=== PATIENT | male | born 1935 | race Two or more races ===

== ENCOUNTER 2018-02-04 15:49 | Inpatient (IN) | payer MEDICAID, MEDICARE ==
[~2018-02-04] VITALS: Ht 165.1 cm; Wt 603.7 kg
[2018-02-04] VITALS (11 sets, daily range): BP systolic 70–102; BP diastolic 30–81
[~2018-02-04 15:49] MED LIST: Amiodarone 150mg/ml 3ml Amp ONE; Atropine Inj 1mg/10ml Syr ONE; Calcium Chloride 10% 10ml carpuject IVP ONE; Sodium Bicarbonate 50ml Carp ONE
[2018-02-04] MEDS ORDERED: CARVEDILOL3.125 MG ORAL (15:54)
[2018-02-04] MEDS ORDERED: LASIX40 MG ORAL (15:54)
[2018-02-04] MEDS ORDERED: ASPIR 8181 MG ORAL (15:54)
[2018-02-04] MEDS ORDERED: ATORVASTATIN CA40 MG ORAL (15:54)
[2018-02-04] MEDS ORDERED: METFORMIN HCL1000 M1 ORAL (15:54)
--- NOTE | 2018-02-04 16:00 | Emergency Room Report ---
History of Present Illness General Chief Complaint: Altered Level of Consciousness Source: Patient, Family Member Present Illness HPI 82-year-old male, history of hypertension, diabetes, asthma, presenting with 3 days of severe generalized weakness, decreased oral intake. Patient is coming from home with . States that he has had some subjective fever. Also too weak to get up, which has worsened the last 2 days. says that he has not eaten or drink anything since yesterday. Patient is very lethargic, however arousable and oriented 3. However very difficult for him to answer questions. He is denying current chest pain shortness of breath or abdominal pain. states that she believes patient has had some vomiting and diarrhea, around 3 times a day. No bloody or black stool. Allergies: Coded Allergies: No Known Allergies (Unverified , 02/04/18) Patient History Past Medical History: see triage record Past Surgical History: none Pertinent Family History: none Reviewed Nursing Documentation: PMH: Agreed; PSxH: Agreed Nursing Documentation-PMH Hx Hypertension: Yes Hx Diabetes: Yes Review of Systems All Other Systems: negative except mentioned in HPI Physical Exam Vital Signs Date Time Temp Pulse Resp B/P (MAP) Pulse Ox O2 Delivery O2 Flow Rate FiO2 02/04/18 15:44 97.8 86 14 90/60 95 Room Air 97.9 Sp02 EP Interpretation: reviewed, normal General Appearance: moderate distress, lethargic, thin, other - arousable Head: normocephalic, atraumatic Eyes: bilateral eye normal inspection, bilateral eye PERRL, bilateral eye EOMI ENT: normal ENT inspection, normal pharynx, normal voice, moist mucus membranes Neck: normal inspection, full range of motion, supple Respiratory: normal inspection, lungs clear, normal breath sounds, no respiratory distress, no retraction, no wheezing, speaking full sentences, chest symmetrical Cardiovascular #1: regular rate, rhythm, normal capillary refill, edema Cardiovascular #2: 2+ radial (R), 2+ radial (L) Gastrointestinal: normal inspection, non tender, soft, non-distended, no guarding, other - nontender all abdomen, soft Musculoskeletal: normal inspection, back normal, normal range of motion, non- tender Neurologic: oriented x3, other - lethargic, moving all ext on command Psychiatric: other - letgargic Skin: warm/dry, well hydrated, normal turgor, jaundice Procedures Critical Care Time Critical Care Time 40 minutes of CC time 82-year-old male, generalized weakness, jaundice VS: Hypotension Airway patent. Not hypoxic. PLAN: IV access, labs, lactate, troponin, Blood/Urine Cx, Abx, IVF Anticipate admission to Tele vs. PAUL CC time also includes review of labs, review of EMR, discussion with family and paperwork from SNF, d/w hospitalist CC could include dosing of pressors, additional Abx CC time does not include procedures Central Line Central Line : Consent: Written Central Line Lumen: triple Maximal Sterile Barrier Tech: yes cap, yes mask, yes sterile gown, yes sterile gloves, yes large sterile sheet, yes hand hygiene, yes chlorhexidine prep Central Line Postion: internal jugular (R) Anesthesia: Lidocaine cc's of anesthesia: 2 Complications: none Central Line Post Position: sutured, good blood return, position confirmed w / CXR Attempts: One Patient Tolerated: Well Complications: None Medical Decision Making Diagnostic Impression: Primary Impression: Hypotension Additional Impressions: Generalized weakness Decreased oral intake Hypoglycemia Renal failure Elevated LFTs ER Course 82-year-old male with lethargy, decreased oral intake for 3 days DDX: Dehydration, electrolyte disturbance, gastroenteritis, cholangitis, diverticulitis, UTI, pneumonia Plan: Obtain labs, ua, EKG, CXR Fluids ER course: Patient initially hyposensitive, 86/59, given IV fluid bolus CXR with chf vs. R sided infiltrate. pt given empiric abx also with elevated LFTs, pt initially without abd pain, now c/o RUQ pain - possibly cholangitis however afebrile rectally pt received abx, flagyl added BP improved with fluids, MAP remaining above 65 CT abdo pelvis performed - ascites/edema patient had BM then became hypotensive, systolic 70s, already received 1L, getting 2nd liter placed R IJ central line, levophed started conveyed to patient's critical condition of pt he is still protecting airway and conversing with Disposition: Patient is to be admitted to ICU D/W hospitalist Dr Rajan Please note that this Emergency Department Report was dictated using [employer] technology software, occasionally this can lead to erroneous entry secondary to interpretation by the dictation equipment. EKG Diagnostic Results EP Interpretation: Yes Rate: normal Rhythm: NSR ST Segments: TWI V4-V6 ASA given to patient: No Rhythm Strip EP Interpretation: Yes Rate: 90 Rhythm: NSR, no PVCs, no ectopy Chest X-ray CXR: Ordered: Yes 1 view Indication: Lethargy EP interpretation: Yes Interpretation: cardiomegaly, +chf, cannot r/o R sided infilrtrate Impression:cardiomegaly, +chf, cannot r/o R sided infilrtrate Electronically signed by Veronica Darden MD Chest X-ray CXR: Ordered: Yes 1 view Indication: Chest pain EP interpretation: Yes Interpretation: No consolidation, no effusion, no PTX, no acute cardiopulmonary disease Impression: No acute disease Electronically signed by Veronica Darden MD Chest X-ray CXR: Ordered: Yes 1 view Indication: line placement EP interpretation: Yes Interpretation: chf, CVP in appropriate position Impression: chf, CVP in appropriate position Electronically signed by Veronica Darden MD CT abdo pelvis CT ABDOMEN & PELVIS Without Contrast: Small ascites. Anasarca. Due to ascites/edema, cannot exclude pancreatitis, gastritis, enteritis, colitis. No appendicitis, SBO, or diverticulitis. No hydronephrosis. Distended bladder. Mildly thickened bladder which may be edema versus cystitis. Prominent prostate. Cardiomegaly. Small pericardial effusion. Pleural effusions. Bibasilar atelectasis/infiltrates. Laboratory Tests Test 02/04/18 15:55 02/04/18 16:21 Arterial Blood pH 7.429 (7.350-7.450) Arterial Blood Partial Pressure CO2 36.6 mmHg (35.0-45.0) Arterial Blood Partial Pressure O2 126.7 mmHg (75.0-100.0) H Arterial Blood HCO3 23.7 mmol/L (22.0-26.0) Arterial Blood Oxygen Saturation 97.4 % (92.0-98.0) Arterial Blood Base Excess -0.3 Biju Test Positive White Blood Count 11.4 K/UL (4.8-10.8) H Red Blood Count 5.47 M/UL (4.70-6.10) Hemoglobin 14.1 G/DL (14.2-18.0) L Hematocrit 42.6 % (42.0-52.0) Mean Corpuscular Volume 78 FL (80-99) L Mean Corpuscular Hemoglobin 25.8 PG (27.0-31.0) L Mean Corpuscular Hemoglobin Concent 33.1 G/DL (32.0-36.0) Red Cell Distribution Width 21.4 % (11.6-14.8) H Platelet Count 138 K/UL (150-450) L Mean Platelet Volume 12.1 FL (6.5-10.1) H Neutrophils (%) (Auto) % (45.0-75.0) Lymphocytes (%) (Auto) % (20.0-45.0) Monocytes (%) (Auto) % (1.0-10.0) Eosinophils (%) (Auto) % (0.0-3.0) Basophils (%) (Auto) % (0.0-2.0) Differential Total Cells Counted 100 Neutrophils % (Manual) 89 % (45-75) H Lymphocytes % (Manual) 5 % (20-45) L Monocytes % (Manual) 4 % (1-10) Eosinophils % (Manual) 0 % (0-3) Basophils % (Manual) 0 % (0-2) Band Neutrophils 2 % (0-8) Platelet Estimate Decreased L Platelet Morphology Normal Poikilocytosis 3+ Anisocytosis 3+ Microcytosis 1+ [place] Cells 2+ Sodium Level 141 MMOL/L (136-145) Potassium Level 3.9 MMOL/L (3.5-5.1) Chloride Level 103 MMOL/L (98-107) Carbon Dioxide Level 30 MMOL/L (21-32) Anion Gap 8 mmol/L (5-15) Blood Urea Nitrogen 42 mg/dL (7-18) H Creatinine 2.1 MG/DL (0.55-1.30) H Estimate Glomerular Filtration Rate mL/min (>60) Glucose Level 62 MG/DL (74-106) L Lactic Acid Level 2.10 mmol/L (0.66-2.22) Calcium Level 7.9 MG/DL (8.5-10.1) L Total Bilirubin 6.4 MG/DL (0.2-1.0) H Direct Bilirubin 5.2 MG/DL (0.0-0.3) H Aspartate Amino Transferase (AST) 150 U/L (15-37) H Alanine Aminotransferase (ALT) 114 U/L (12-78) H Alkaline Phosphatase 489 U/L (46-116) H Total Creatine Kinase 85 U/L (26-308) Troponin I 0.017 ng/mL (0.000-0.056) Pro-B-Type Natriuretic Peptide > 30901 pg/mL (0-125) H Total Protein 5.4 G/DL (6.4-8.2) L Albumin 1.9 G/DL (3.4-5.0) L Globulin 3.5 g/dL Albumin/Globulin Ratio 0.5 (1.0-2.7) L Microbiology Date/Time Source Procedure Growth Status 02/04/18 16:29 Nasal Nares Influenza Types A,B Antigen (PADMINI) - Final Complete Last Vital Signs Date Time Temp Pulse Resp B/P (MAP) Pulse Ox O2 Delivery O2 Flow Rate FiO2 02/04/18 15:44 97.8 86 14 90/60 95 Room Air 97.9 Disposition: ADMITTED INPATIENT Condition: Critical Veronica Darden M.D. Feb 04, 2018 16:00
[2018-02-04 16:43] LABS: HEMATOCRIT 42.6 % (42.0-52.0); HEMOGLOBIN 14.1 G/DL (14.2-18.0); MEAN CORPUSCULAR VOLUME 78 FL (80-99); PLATELET COUNT 138 K/UL (150-450); RED BLOOD COUNT 5.47 M/UL (4.70-6.10); RED CELL DISTRIBUTION WIDTH 21.4 % (11.6-14.8); WHITE BLOOD COUNT 11.4 K/UL (4.8-10.8)
[2018-02-04] MEDS ORDERED: cefTRIAXone 1 GM in NS 55 ML IVPB ONE (16:45)
[2018-02-04] MEDS ORDERED: Azithromycin 500 MG in NS 275 ML IV ONE (16:45)
[2018-02-04 16:52] LABS: ANION GAP 8 mmol/L (5-15); BLOOD UREA NITROGEN 42 mg/dL (7-18); CALCIUM 7.9 MG/DL (8.5-10.1); CARBON DIOXIDE 30 MMOL/L (21-32); CHLORIDE 103 MMOL/L (98-107); CREATININE 2.1 MG/DL (0.55-1.30); POTASSIUM 3.9 MMOL/L (3.5-5.1); SODIUM 141 MMOL/L (136-145)
[2018-02-04] MEDS ORDERED: Azithromycin 500mg Inj IV ONE (16:52)
[2018-02-04 17:04] LABS: ALANINE AMINOTRANSFERASE 114 U/L (12-78); ALBUMIN 1.9 G/DL (3.4-5.0); ALBUMIN/GLOBULIN RATIO 0.5 (1.0-2.7); ALKALINE PHOSPHATASE 489 U/L (46-116); ASPARTATE AMINO TRANSFERASE 150 U/L (15-37); BILIRUBIN,TOTAL 6.4 MG/DL (0.2-1.0); CREATINE KINASE 85 U/L (26-308)
[2018-02-04 17:06] LABS: BILIRUBIN,DIRECT 5.2 MG/DL (0.0-0.3)
[2018-02-04] MEDS ORDERED: Lidocaine 1% Plain 30 ml INJ ONE (18:25)
[2018-02-04] MEDS ORDERED: Levophed 4mg/4mL Inj IV ONE ×2 (18:56→22:39)
[2018-02-04] MEDS ORDERED: Vancomycin 1gm inj IVPB ONE (18:56)
[2018-02-04] MEDS ORDERED: Vancomycin 1 GM in NS 275 ML IVPB ONE (19:00)
--- NOTE | 2018-02-04 19:51 | General Progress Note ---
Assessment/Plan Assessment/Plan GI CONSULT - Preliminary evaluation ATSP for abnormal LFT Records on line reviewed and discussed with Dr. Arredondo Need to r/o cholecystitis vs biliary obstruction/cholagitis CT reportedly not informative Will order STAT ultrasound tonight Thank you Gus Ingram MD Subjective Allergies: Coded Allergies: No Known Allergies (Unverified , 02/04/18) Objective Last 24 Hour Vital Signs Date Time Temp Pulse Resp B/P (MAP) Pulse Ox O2 Delivery O2 Flow Rate FiO2 02/04/18 16:11 96.3 14 89/59 95 Room Air 96.3 02/04/18 15:44 97.8 86 14 90/60 95 Room Air 97.9 Laboratory Tests 02/04/18 15:55: Arterial Blood pH 7.429, Arterial Blood Partial Pressure CO2 36.6, Arterial Blood Partial Pressure O2 126.7H, Arterial Blood HCO3 23.7, Arterial Blood Oxygen Saturation 97.4, Arterial Blood Base Excess -0.3, Biju Test Positive 02/04/18 16:21: White Blood Count 11.4H, Red Blood Count 5.47, Hemoglobin 14.1L, Hematocrit 42.6 , Mean Corpuscular Volume 78L, Mean Corpuscular Hemoglobin 25.8L, Mean Corpuscular Hemoglobin Concent 33.1, Red Cell Distribution Width 21.4H, Platelet Count 138L, Mean Platelet Volume 12.1H, Neutrophils (%) (Auto) , Lymphocytes (%) (Auto) , Monocytes (%) (Auto) , Eosinophils (%) (Auto) , Basophils (%) (Auto) , Differential Total Cells Counted 100, Neutrophils % ( Manual) 89H, Lymphocytes % (Manual) 5L, Monocytes % (Manual) 4, Eosinophils % ( Manual) 0, Basophils % (Manual) 0, Band Neutrophils 2, Platelet Estimate DecreasedL, Platelet Morphology Normal, Poikilocytosis 3+, Anisocytosis 3+, Microcytosis 1+, Jordy Cells 2+, Sodium Level 141, Potassium Level 3.9, Chloride Level 103, Carbon Dioxide Level 30, Anion Gap 8, Blood Urea Nitrogen 42H, Creatinine 2.1H, Estimat Glomerular Filtration Rate , Glucose Level 62L, Lactic Acid Level 2.10, Calcium Level 7.9L, Total Bilirubin 6.4H, Direct Bilirubin 5.2H , Aspartate Amino Transf (AST/SGOT) 150H, Alanine Aminotransferase (ALT/SGPT) 114H, Alkaline Phosphatase 489H, Total Creatine Kinase 85, Troponin I 0.017, Pro -B-Type Natriuretic Peptide > 06996U, Total Protein 5.4L, Albumin 1.9L, Globulin 3.5, Albumin/Globulin Ratio 0.5L Height (Feet): 5 Height (Inches): 5.00 Weight (Pounds): 120 GUS INGRAM Feb 04, 2018 19:51
[2018-02-04] MEDS ORDERED: Acetaminophen 650 MG SUPP RECTAL PRN (20:00)
--- NOTE | 2018-02-04 20:08 | History & Physical ---
History and Physical History & Physicial HP dictated # [id number] GLENN RODRIGUEZ Feb 04, 2018 20:08
[2018-02-04 20:20] LABS: INR 1.7 (0.9-1.1)
[2018-02-04] MEDS: D5NS 1,000 ML IV SCH (20:40)
[2018-02-04 21:19] LABS: APPEARANCE,URINE SLIGHTLY CLOUDY; BILIRUBIN, URINE 2+ (NEGATIVE); COLOR,URINE BROWN; GLUCOSE, URINE (UA) NEGATIVE (NEGATIVE); KETONES,URINE NEGATIVE (NEGATIVE); LEUKOCYTE ESTERASE ,URINE 1+ (NEGATIVE); NITRITE,URINE NEGATIVE (NEGATIVE); PH,URINE 5 (4.5-8.0); PROTEIN,URINE 3+ (NEGATIVE); UROBILINOGEN,URINE 8 MG/DL (0.0-1.0)
[2018-02-04] MEDS: Piperacillin/Tazobactam 3.375 GM in D5W 110 ML IVPB SCH (22:00)
[2018-02-04] MEDS ORDERED: Piperacillin/Tazobactam 3.375 GM in D5W 110 ML IVPB SCH (22:00)
--- NOTE | 2018-02-04 23:13 | Consultation ---
Consult Note Assessment/Plan #[id number] sepsis with shock UTI pna elevated LFT ro obstruction, choleysistis dm hx of HTN RI dehydration left 5th digit wound MARIA E MUNOZ DO Feb 04, 2018 23:13
[2018-02-04] MEDS ORDERED: Zosyn 3.375gm inj ONE ×2 (23:20)
[2018-02-05] VITALS (45 sets, daily range): BP systolic 90–110; BP diastolic 54–88
--- NOTE | 2018-02-05 02:30 | History and Physical Report ---
DATE OF ADMISSION: 02/04/2018 CHIEF COMPLAINT: The patient had change in mental status, not eating for the past few days. HISTORY OF PRESENT ILLNESS: This is an 82-year-old male, who lives with . The states that the patient was not eating for the past few days, was not responding well, was confused, and had weakness. The patient was seen in the emergency room. Blood pressure was low. The patient was found to be in septic shock and is being admitted to intensive care unit on the pressors. The patient is lethargic and unable to respond. PAST MEDICAL HISTORY: History of diabetes mellitus, hypertension. The patient has a coronary artery disease, status post stenting. According to the , the patient has had some liver disease, but she cannot give me details. MEDICATIONS: Reviewed. ALLERGIES: No known drug allergies. SOCIAL HISTORY: No history of smoking or alcohol abuse. REVIEW OF SYSTEMS: Unobtainable. PHYSICAL EXAMINATION: GENERAL: The patient is a elderly male, eyes shut. VITAL SIGNS: Blood pressure is 90/60, pulse 86, temperature 97.8, respirations 14. HEENT: Somewhat pale conjunctiva. Icteric sclerae. NECK: Supple. LUNGS: Clear to auscultation. HEART: S1, S2 without murmurs or rubs. ABDOMEN: Soft and nontender. EXTREMITIES: Bilateral pedal edema. LABORATORY FINDINGS: The chemistry panel shows serum sodium potassium 3.9, chloride 103, CO2 32, BUN is 42, creatinine 2.1, blood sugar is 62, and calcium 7.9. AST 151, ALT of 114, alkaline phosphatase 489. ASSESSMENT: This is an 82-year-old, male, who is admitted with change in mental status, poor p.o. intake. He has low blood pressure, diagnosis of septic shock. He has also elevated liver enzymes. Specifically also biliary obstruction based on the fact that he has bilirubin of 6.4. Also AST and ALT elevated. Acute cholangitis above among other reasons for his sepsis. PLAN: The patient will be on IV fluids, NPO, IV antibiotics, ICU care. IV Levophed will be started to keep systolic blood pressure more than 90. Critical Care, Gastrointestinal, and surgical consultation will be obtained. Vito Rajan M.D. DR: Carolina JOB#: [id number] CC:
--- NOTE | 2018-02-05 03:30 | Consultation ---
DATE OF CONSULTATION: 02/04/2018 PULMONARY/CRITICAL CARE CONSULTATION CONSULTING PHYSICIAN: Lola Harper M.D. REASON FOR CONSULTATION: Sepsis, shortness of breath. HISTORY OF PRESENT ILLNESS: This is an 82-year-old gentleman with multiple medical problems, who came from home with his with fever, cough, generalized weakness, shortness of breath, hypotension, decreased p.o. intake for 48 hours, lethargic, and unable to ambulate. He has had nausea, vomiting, and diarrhea as well. He has history of hypertension and diabetes. In the emergency room, triple-lumen was placed. He was placed on Levophed to maintain mean arterial pressure above 65 mmHg. He was straight-catheterized. A Astorga catheter was not placed. IV antibiotics and IV fluids have been initiated. SOCIAL HISTORY: Negative for tobacco, alcohol, or drugs. FAMILY HISTORY: Noncontributory. MEDICATIONS: Pre-hospital medications reviewed, reconciled, and documented in the electronic medical record by dose, frequency, and route. SURGICAL HISTORY: None. PHYSICAL EXAMINATION: GENERAL: As per my exam, he is arousable, has shortness of breath, but critically ill appearing. VITAL SIGNS: Blood pressure is 102/72, pulse 92, respirations are 23, currently on 2 L nasal cannula, hypothermic at 96.4. HEENT: Normocephalic and atraumatic. Oropharynx is dry. Nasal mucosa is mildly dry. NECK: Supple. LUNGS: Decreased rhonchi at bilateral bases. No wheezes present. HEART: Regular without murmur. ABDOMEN: Soft, obese, nontender. Positive bowel sounds. EXTREMITIES: No edema. SKIN: He has a wound of his fifth digit of his left foot. No other lesions were noted. LABORATORY VALUES: White count 11.4, hemoglobin of 14.1, platelets 138,000. Sodium 141, potassium 3.9, chloride 103, bicarbonate 30, BUN 42, creatinine 2.1. Lactic acid is increased at 4.10. His troponin is 0.014. His BNP is elevated at 3500. His LFTs are diffusely elevated with bilirubin of 6.4, alkaline phosphatase is 48.9. Urinalysis is positive for leukocyte esterase. ABG, pH 7.429, pCO2 36, pO2 126. The patient has been seen in consultation by wellness program coordinator who is in the process of working on ruling out cholecystitis versus biliary obstruction and cholangitis. CT report is pending. This is an informative per his report and stat ultrasound is pending at this time. Chest x-ray shows CHF with right-sided infiltrate. Abdominal CT with ascites and edema. ASSESSMENT: 1. Respiratory insufficiency. 2. Sepsis. 3. Elevated liver function tests with concerns for cholecystitis versus cholangitis and obstructive jaundice. 4. Right lower lobe pneumonia on chest x-ray. 5. History of diabetes. 6. Hypertension. 7. Worsening renal insufficiency. 8. Urinary tract infection. 9. Shock. PLAN: He has been placed on IV antibiotics which will be continued at this time, Zosyn and vancomycin. Pressors to maintain mean arterial pressure greater than 35 mmHg, IV fluids, glycemic control, DVT prophylaxis, wound care, nebulizer treatments, aspiration precautions, recheck his labs in the morning. We will trend his lactate, follow up his abdominal ultrasound which is pending. Astorga catheter will be placed. A 2D echo is recommended as well and trending troponins accordingly. The patient remains critically ill. Greater than 35 minutes of critical care time was spent in evaluating the patient in the intensive care unit and reviewing laboratory values, studies, consultants' notes, recommendations, discussing with the nursing staff, and discussing with the patient's who is at the bedside. Lola Harper D.O. DR: Nasim JOB#: [id number] CC:
[2018-02-05 05:19] LABS: HEMATOCRIT 40.6 % (42.0-52.0); HEMOGLOBIN 13.1 G/DL (14.2-18.0); MEAN CORPUSCULAR VOLUME 79 FL (80-99); PLATELET COUNT 142 K/UL (150-450); RED BLOOD COUNT 5.16 M/UL (4.70-6.10); RED CELL DISTRIBUTION WIDTH 21.5 % (11.6-14.8); WHITE BLOOD COUNT 13.1 K/UL (4.8-10.8)
[2018-02-05] MEDS: Piperacillin/Tazobactam 3.375 GM in D5W 110 ML IVPB SCH ×3 (05:26→21:03)
[2018-02-05 05:40] LABS: ALANINE AMINOTRANSFERASE 116 U/L (12-78); ALBUMIN 1.6 G/DL (3.4-5.0); ALKALINE PHOSPHATASE 402 U/L (46-116); ANION GAP 9 mmol/L (5-15); ASPARTATE AMINO TRANSFERASE 145 U/L (15-37); BILIRUBIN,DIRECT 5.4 MG/DL (0.0-0.3); BILIRUBIN,TOTAL 6.5 MG/DL (0.2-1.0); BLOOD UREA NITROGEN 38 mg/dL (7-18); CALCIUM 7.2 MG/DL (8.5-10.1); CARBON DIOXIDE 26 MMOL/L (21-32); CHLORIDE 105 MMOL/L (98-107); POTASSIUM 3.9 MMOL/L (3.5-5.1); SODIUM 140 MMOL/L (136-145)
[2018-02-05] MEDS: D5NS 1,000 ML IV SCH ×3 (06:42→23:18)
[2018-02-05] MEDS ORDERED: Vancomycin 1gm/D5W 275ml IVPB ONE ×2 (08:00)
--- NOTE | 2018-02-05 09:32 | Diagnostic Imaging Report ---
Indication: Abdominal pain Technique: CT scan of the abdomen and pelvis utilizing automated exposure control without intravenous or oral contrast. Axial, sagittal and coronal images were obtained. CT dose: Total DLP 546 mGycm; CTDI vol 11.1 mGy Comparison: None Findings: Evaluation of the solid organs is limited without intravenous contrast material. The heart is enlarged. There is a small pericardial effusion. Moderate right and small left pleural effusions are seen with bilateral lower lobe atelectasis/infiltrates. There is mild ascites. Subcutaneous edema is present. Atherosclerotic changes are seen. The abdominal aorta is normal in caliber. There is no gross focal liver lesion. The adrenal glands, spleen and pancreas are unremarkable. No calcified gallstones are seen. Kidneys are grossly unremarkable. The small bowel loops are normal in caliber. The appendix is normal. The prostate is enlarged with impression on the bladder base measuring 6.2 x 5.7 cm. Small fat and fluid-containing bilateral inguinal hernias are present. Degenerative changes of the spine are noted. There are also degenerative changes of the bilateral hips. There is grade 1 anterolisthesis of L5 on S1 with L5 pars defects. Bladder wall is mildly thickened. Impression: Mild ascites, moderate right and small left pleural effusions and subcutaneous edema suggestive of anasarca. Clinical correlation recommended. Cardiomegaly. Small pericardial effusion. Bilateral lower lobe atelectasis versus pneumonia. Clinical correlation recommended. No mechanical bowel obstruction. Enlarged prostate. Mild wall thickening of the bladder may be secondary to chronic outlet obstruction but cystitis not excluded. Correlation with urinalysis recommended. Small fat and fluid-containing bilateral inguinal hernias. Atherosclerotic changes. 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 Other findings as above. The CT scanner at [facility] is accredited by the [employer] and the scans are performed using protocols designed to limit radiation exposure to as low as reasonably achievable to attain images of sufficient resolution adequate for diagnostic evaluation.
--- NOTE | 2018-02-05 09:53 | Diagnostic Imaging Report ---
Indication: Shortness of breath Technique: XRAY Chest 1v Comparison: None Findings: Cardiac silhouette is prominent. Bilateral interstitial opacities are present. Costophrenic angles are blunted. Degenerative changes of the spine are present. Impression: Cardiomegaly with bilateral interstitial edema/infiltrates. Bibasilar pleural effusions.
--- NOTE | 2018-02-05 10:31 | Diagnostic Imaging Report ---
Indication: Status post central line placement Technique: XRAY Chest 1v Comparison: Examination from earlier the same day at 1618 hours Findings: Right internal jugular central line tip projects over the SVC/atrial junction. There is no pneumothorax. Chest is otherwise grossly stable in appearance. Impression: Satisfactory right internal jugular central line placement. No pneumothorax.
[2018-02-05] MEDS ORDERED: D5W 275ml ONE (10:59)
[2018-02-05] MEDS ORDERED: Tubing IV Secondary IV ONE (10:59)
[2018-02-05] MEDS ORDERED: NS 275ml ONE (10:59)
[2018-02-05] MEDS ORDERED: D5NS 1000ml IV ONE (10:59)
--- NOTE | 2018-02-05 11:11 | General Progress Note ---
Progress Note Progress Note For Dr. Arredondo: 82 yo male admitted from ER with painless jaundice and sepsis with bnp 35,000. Total bilirubin / direct 6.4/5.2 - this AM 6.5/5.4 Mildly elevated AST,ALT, Alk Phos Albumin 1.9 BUN/CR 42/2.1 - this AM 38/2.0 CT: ascites, anasarca, no pancreas or GB pathology evident, bilateral inguinal hernia containing fluid and fat Ultrasound - pending Imp. Jaundice, painless, with possible sepsis Rec: Await ultrasound - with bilirubin over 4 unlikely to be related only to cholecystitis Likely will need ERCP Antibiotics - per medicine R/O gallstones/CBD stones, ampullary or head of pancreas or bile duct tumor ISMAEL GOODWIN Feb 05, 2018 11:11
--- NOTE | 2018-02-05 11:16 | General Progress Note ---
Assessment/Plan Assessment/Plan GI CONSULT Assessment - Sepsis/shock/lactic acidosis - part of abnormal LFT may be due to hepatic hypoperfusion - abnormal LFT - cholangitis/biliary obstruction vs. cholecystitis - anasarca Recommendation - NPO - IVF - Abx - await STAT abd U/S - Surgical opinion - Further rec to follow Thank you Gus Ingram MD Subjective Allergies: Coded Allergies: No Known Allergies (Unverified , 02/04/18) Objective Last 24 Hour Vital Signs Date Time Temp Pulse Resp B/P (MAP) Pulse Ox O2 Delivery O2 Flow Rate FiO2 02/05/18 10:30 102 21 103/84 99 Nasal Cannula 2.0 02/05/18 10:00 103 25 106/86 99 Nasal Cannula 2.0 02/05/18 09:30 101 22 105/88 99 Nasal Cannula 2.0 02/05/18 09:00 104 21 106/85 98 Nasal Cannula 2.0 02/05/18 08:30 103 22 95/72 98 Nasal Cannula 2.0 02/05/18 08:23 96/72 02/05/18 08:00 102 02/05/18 08:00 102 24 96/72 99 Nasal Cannula 2.0 02/05/18 07:30 97.8 98 21 90/75 99 Nasal Cannula 2.0 97.8 02/05/18 07:00 93/78 02/05/18 07:00 99 21 93/78 99 Nasal Cannula 2.0 02/05/18 06:30 98 22 93/78 99 Nasal Cannula 2.0 02/05/18 06:00 98 18 98/73 100 Nasal Cannula 2.0 02/05/18 06:00 98/73 02/05/18 05:30 98 16 102/84 100 Nasal Cannula 2.0 02/05/18 05:00 99 16 100/82 100 Nasal Cannula 2.0 02/05/18 04:30 99 16 100/82 100 Nasal Cannula 2.0 02/05/18 04:10 97/57 02/05/18 04:00 97.5 101 21 106/82 100 Nasal Cannula 2.0 97.5 02/05/18 04:00 101 02/05/18 03:30 99 25 98/60 100 Nasal Cannula 2.0 02/05/18 03:00 82 18 96/74 100 Nasal Cannula 2.0 02/05/18 02:30 90 21 96/72 99 Nasal Cannula 2.0 02/05/18 02:00 90 21 110/80 99 Nasal Cannula 2.0 02/05/18 02:00 117/97 02/05/18 01:45 93 20 98/66 99 Nasal Cannula 2.0 02/05/18 01:00 97 23 110/80 99 Nasal Cannula 2.0 02/05/18 00:30 101 23 108/76 99 Nasal Cannula 2.0 02/05/18 00:00 92 02/05/18 00:00 100 23 103/78 99 Nasal Cannula 2.0 02/04/18 23:45 88 22 70/30 99 Nasal Cannula 2.0 02/04/18 23:30 92 21 92/55 99 Nasal Cannula 2.0 02/04/18 23:00 92 20 102/64 99 Nasal Cannula 2.0 02/04/18 22:45 93 21 100/73 97 Nasal Cannula 2.0 02/04/18 22:44 102/72 02/04/18 22:20 93 21 102/64 97 Nasal Cannula 2.0 02/04/18 22:20 92 02/04/18 22:15 92 23 98/53 96 Nasal Cannula 2.0 02/04/18 22:10 96.4 87 17 99/71 99 Nasal Cannula 2.0 96.4 02/04/18 22:00 96.4 87 17 99/71 99 Nasal Cannula 2.0 96.4 02/04/18 21:22 96.4 90 18 93/66 98 Nasal Cannula 2.0 96.4 02/04/18 20:16 96.2 90 17 99/81 100 Room Air 96.2 02/04/18 20:00 96/72 02/04/18 19:50 89/59 02/04/18 19:46 96.3 14 89/59 95 Room Air 96.3 02/04/18 19:45 71/43 02/04/18 19:35 70/53 02/04/18 19:35 70/53 02/04/18 19:35 70/53 02/04/18 19:35 70/53 02/04/18 19:35 70/53 02/04/18 19:35 70/53 02/04/18 19:35 70/53 02/04/18 19:35 70/53 02/04/18 19:25 77/51 02/04/18 19:25 77/51 02/04/18 19:25 77/51 02/04/18 19:25 77/51 02/04/18 19:25 77/51 02/04/18 19:25 77/51 02/04/18 19:25 77/51 02/04/18 19:25 77/51 02/04/18 19:15 73/43 02/04/18 19:15 73/43 02/04/18 19:15 73/43 02/04/18 19:15 73/43 02/04/18 19:15 73/43 02/04/18 19:15 73/43 02/04/18 19:15 73/43 02/04/18 19:15 73/43 02/04/18 19:05 74/42 02/04/18 19:05 74/42 02/04/18 19:05 74/42 02/04/18 19:05 74/42 02/04/18 19:05 74/42 02/04/18 19:05 74/42 02/04/18 19:05 74/42 02/04/18 19:05 74/42 02/04/18 19:01 72/57 02/04/18 19:00 72/57 02/04/18 16:11 96.3 14 89/59 95 Room Air 96.3 02/04/18 15:44 97.8 86 14 90/60 95 Room Air 97.9 Intake and Output 02/04/18 02/05/18 19:00 07:00 Intake Total 0 ml 1632.50 ml Output Total 65 ml Balance 0 ml 1567.50 ml Intake Oral 0 ml 0 ml IV Total 1632.50 ml Output Urine Total 65 ml # Bowel Movements 2 Laboratory Tests 02/04/18 15:55: Arterial Blood pH 7.429, Arterial Blood Partial Pressure CO2 36.6, Arterial Blood Partial Pressure O2 126.7H, Arterial Blood HCO3 23.7, Arterial Blood Oxygen Saturation 97.4, Arterial Blood Base Excess -0.3, Biju Test Positive 02/04/18 16:21: White Blood Count 11.4H, Red Blood Count 5.47, Hemoglobin 14.1L, Hematocrit 42.6 , Mean Corpuscular Volume 78L, Mean Corpuscular Hemoglobin 25.8L, Mean Corpuscular Hemoglobin Concent 33.1, Red Cell Distribution Width 21.4H, Platelet Count 138L, Mean Platelet Volume 12.1H, Neutrophils (%) (Auto) , Lymphocytes (%) (Auto) , Monocytes (%) (Auto) , Eosinophils (%) (Auto) , Basophils (%) (Auto) , Differential Total Cells Counted 100, Neutrophils % ( Manual) 89H, Lymphocytes % (Manual) 5L, Monocytes % (Manual) 4, Eosinophils % ( Manual) 0, Basophils % (Manual) 0, Band Neutrophils 2, Platelet Estimate DecreasedL, Platelet Morphology Normal, Poikilocytosis 3+, Anisocytosis 3+, Microcytosis 1+, [place] Cells 2+, Sodium Level 141, Potassium Level 3.9, Chloride Level 103, Carbon Dioxide Level 30, Anion Gap 8, Blood Urea Nitrogen 42H, Creatinine 2.1H, Estimat Glomerular Filtration Rate , Glucose Level 62L, Lactic Acid Level 2.10, Calcium Level 7.9L, Total Bilirubin 6.4H, Direct Bilirubin 5.2H , Aspartate Amino Transf (AST/SGOT) 150H, Alanine Aminotransferase (ALT/SGPT) 114H, Alkaline Phosphatase 489H, Total Creatine Kinase 85, Troponin I 0.017, Pro -B-Type Natriuretic Peptide > 55003J, Total Protein 5.4L, Albumin 1.9L, Globulin 3.5, Albumin/Globulin Ratio 0.5L 02/04/18 19:45: Lactic Acid Level 4.10H, Troponin I 0.014, Prothrombin Time 17.9H, Prothromb Time International Ratio 1.7H, Activated Partial Thromboplast Time 60H 02/04/18 20:00: Urine Color Brown, Urine Appearance Slightly cloudy, Urine pH 5, Urine Specific [place] 1.015, Urine Protein 3+H, Urine Glucose (UA) Negative, Urine Ketones Negative, Urine Occult Blood 2+H, Urine Nitrite Negative, Urine Bilirubin 2+H, Urine Ictotest Positive, Urine Urobilinogen 8H, Urine Leukocyte Esterase 1+H, Urine RBC 2-4H, Urine WBC 2-4, Urine Squamous Epithelial Cells Occasional, Urine Amorphous Sediment ManyH, Urine Bacteria Few, Urine Hyaline Casts 0-2H, Urine Granular Casts 2-4H, Urine Fine Granular Casts 2-4H 02/05/18 05:00: White Blood Count 13.1H, Red Blood Count 5.16, Hemoglobin 13.1L, Hematocrit 40.6L, Mean Corpuscular Volume 79L, Mean Corpuscular Hemoglobin 25.5L, Mean Corpuscular Hemoglobin Concent 32.4, Red Cell Distribution Width 21.5H, Platelet Count 142L, Mean Platelet Volume 12.0H, Neutrophils (%) (Auto) , Lymphocytes (%) (Auto) , Monocytes (%) (Auto) , Eosinophils (%) (Auto) , Basophils (%) (Auto) , Differential Total Cells Counted 100, Neutrophils % ( Manual) 81H, Lymphocytes % (Manual) 3L, Monocytes % (Manual) 3, Eosinophils % ( Manual) 0, Basophils % (Manual) 0, Band Neutrophils 13H, Platelet Estimate DecreasedL, Platelet Morphology Normal, Polychromasia 1+, Anisocytosis 2+, Sodium Level 140, Potassium Level 3.9, Chloride Level 105, Carbon Dioxide Level 26, Anion Gap 9, Blood Urea Nitrogen 38H, Creatinine 2.0H, Estimat Glomerular Filtration Rate , Glucose Level 201#H, Calcium Level 7.2L, Total Bilirubin 6.5H , Direct Bilirubin 5.4H, Aspartate Amino Transf (AST/SGOT) 145H, Alanine Aminotransferase (ALT/SGPT) 116H, Alkaline Phosphatase 402H, Total Protein 4.9L , Albumin 1.6L, Random Vancomycin Level 10.7 02/05/18 09:12: Lactic Acid Level 4.30H Height (Feet): 5 Height (Inches): 5.00 Weight (Pounds): 132 BRITTANIGUS WALL Feb 05, 2018 11:16
--- NOTE | 2018-02-05 12:05 | General Progress Note ---
Assessment/Plan Problem List: (1) Septic shock ICD Codes: A41.9 - Sepsis, unspecified organism; R65.21 - Severe sepsis with septic shock SNOMED: 77104731 (2) ARF (acute renal failure) ICD Codes: N17.9 - Acute kidney failure, unspecified SNOMED: 14838723 (3) Elevated LFTs ICD Codes: R79.89 - Other specified abnormal findings of blood chemistry SNOMED: 612635449, 583766712 (4) Generalized weakness ICD Codes: R53.1 - Weakness SNOMED: 70922002 Assessment/Plan IVF abxs check renal US follow labs cont with pressors Discussed with RN ID consult, pulm consult GI F/U Subjective Allergies: Coded Allergies: No Known Allergies (Unverified , 02/04/18) Subjective more alert Objective Last 24 Hour Vital Signs Date Time Temp Pulse Resp B/P (MAP) Pulse Ox O2 Delivery O2 Flow Rate FiO2 02/05/18 11:00 101 21 102/80 99 Nasal Cannula 2.0 02/05/18 10:30 102 21 103/84 99 Nasal Cannula 2.0 02/05/18 10:00 103 25 106/86 99 Nasal Cannula 2.0 02/05/18 09:30 101 22 105/88 99 Nasal Cannula 2.0 02/05/18 09:00 104 21 106/85 98 Nasal Cannula 2.0 02/05/18 08:30 103 22 95/72 98 Nasal Cannula 2.0 02/05/18 08:23 96/72 02/05/18 08:00 102 02/05/18 08:00 102 24 96/72 99 Nasal Cannula 2.0 02/05/18 07:30 97.8 98 21 90/75 99 Nasal Cannula 2.0 97.8 02/05/18 07:00 93/78 02/05/18 07:00 99 21 93/78 99 Nasal Cannula 2.0 02/05/18 06:30 98 22 93/78 99 Nasal Cannula 2.0 02/05/18 06:00 98 18 98/73 100 Nasal Cannula 2.0 02/05/18 06:00 98/73 02/05/18 05:30 98 16 102/84 100 Nasal Cannula 2.0 02/05/18 05:00 99 16 100/82 100 Nasal Cannula 2.0 02/05/18 04:30 99 16 100/82 100 Nasal Cannula 2.0 02/05/18 04:10 97/57 02/05/18 04:00 97.5 101 21 106/82 100 Nasal Cannula 2.0 97.5 02/05/18 04:00 101 02/05/18 03:30 99 25 98/60 100 Nasal Cannula 2.0 02/05/18 03:00 82 18 96/74 100 Nasal Cannula 2.0 02/05/18 02:30 90 21 96/72 99 Nasal Cannula 2.0 02/05/18 02:00 90 21 110/80 99 Nasal Cannula 2.0 02/05/18 02:00 117/97 02/05/18 01:45 93 20 98/66 99 Nasal Cannula 2.0 02/05/18 01:00 97 23 110/80 99 Nasal Cannula 2.0 02/05/18 00:30 101 23 108/76 99 Nasal Cannula 2.0 02/05/18 00:00 92 02/05/18 00:00 100 23 103/78 99 Nasal Cannula 2.0 02/04/18 23:45 88 22 70/30 99 Nasal Cannula 2.0 02/04/18 23:30 92 21 92/55 99 Nasal Cannula 2.0 02/04/18 23:00 92 20 102/64 99 Nasal Cannula 2.0 02/04/18 22:45 93 21 100/73 97 Nasal Cannula 2.0 02/04/18 22:44 102/72 02/04/18 22:20 93 21 102/64 97 Nasal Cannula 2.0 02/04/18 22:20 92 02/04/18 22:15 92 23 98/53 96 Nasal Cannula 2.0 02/04/18 22:10 96.4 87 17 99/71 99 Nasal Cannula 2.0 96.4 02/04/18 22:00 96.4 87 17 99/71 99 Nasal Cannula 2.0 96.4 02/04/18 21:22 96.4 90 18 93/66 98 Nasal Cannula 2.0 96.4 02/04/18 20:16 96.2 90 17 99/81 100 Room Air 96.2 02/04/18 20:00 96/72 02/04/18 19:50 89/59 02/04/18 19:46 96.3 14 89/59 95 Room Air 96.3 02/04/18 19:45 71/43 02/04/18 19:35 70/53 02/04/18 19:35 70/53 02/04/18 19:35 70/53 02/04/18 19:35 70/53 18 19:35 70/53 18 19:35 70/53 18 19:35 70/53 02/04/18 19:35 70/53 02/04/18 19:25 77/51 02/04/18 19:25 77/51 02/04/18 19:25 77/51 02/04/18 19:25 77/51 02/04/18 19:25 77/51 02/04/18 19:25 77/51 02/04/18 19:25 77/51 02/04/18 19:25 77/51 02/04/18 19:15 73/43 02/04/18 19:15 73/43 02/04/18 19:15 73/43 02/04/18 19:15 73/43 02/04/18 19:15 73/43 02/04/18 19:15 73/43 02/04/18 19:15 73/43 02/04/18 19:15 73/43 02/04/18 19:05 74/42 02/04/18 19:05 74/42 02/04/18 19:05 74/42 02/04/18 19:05 74/42 02/04/18 19:05 74/42 02/04/18 19:05 74/42 02/04/18 19:05 74/42 02/04/18 19:05 74/42 02/04/18 19:01 72/57 02/04/18 19:00 72/57 02/04/18 16:11 96.3 14 89/59 95 Room Air 96.3 02/04/18 15:44 97.8 86 14 90/60 95 Room Air 97.9 Intake and Output 02/04/18 02/05/18 19:00 07:00 Intake Total 0 ml 1632.50 ml Output Total 65 ml Balance 0 ml 1567.50 ml Intake Oral 0 ml 0 ml IV Total 1632.50 ml Output Urine Total 65 ml # Bowel Movements 2 Laboratory Tests 02/04/18 15:55: Arterial Blood pH 7.429, Arterial Blood Partial Pressure CO2 36.6, Arterial Blood Partial Pressure O2 126.7H, Arterial Blood HCO3 23.7, Arterial Blood Oxygen Saturation 97.4, Arterial Blood Base Excess -0.3, Biju Test Positive 02/04/18 16:21: White Blood Count 11.4H, Red Blood Count 5.47, Hemoglobin 14.1L, Hematocrit 42.6 , Mean Corpuscular Volume 78L, Mean Corpuscular Hemoglobin 25.8L, Mean Corpuscular Hemoglobin Concent 33.1, Red Cell Distribution Width 21.4H, Platelet Count 138L, Mean Platelet Volume 12.1H, Neutrophils (%) (Auto) , Lymphocytes (%) (Auto) , Monocytes (%) (Auto) , Eosinophils (%) (Auto) , Basophils (%) (Auto) , Differential Total Cells Counted 100, Neutrophils % ( Manual) 89H, Lymphocytes % (Manual) 5L, Monocytes % (Manual) 4, Eosinophils % ( Manual) 0, Basophils % (Manual) 0, Band Neutrophils 2, Platelet Estimate DecreasedL, Platelet Morphology Normal, Poikilocytosis 3+, Anisocytosis 3+, Microcytosis 1+, [place] Cells 2+, Sodium Level 141, Potassium Level 3.9, Chloride Level 103, Carbon Dioxide Level 30, Anion Gap 8, Blood Urea Nitrogen 42H, Creatinine 2.1H, Estimat Glomerular Filtration Rate , Glucose Level 62L, Lactic Acid Level 2.10, Calcium Level 7.9L, Total Bilirubin 6.4H, Direct Bilirubin 5.2H , Aspartate Amino Transf (AST/SGOT) 150H, Alanine Aminotransferase (ALT/SGPT) 114H, Alkaline Phosphatase 489H, Total Creatine Kinase 85, Troponin I 0.017, Pro -B-Type Natriuretic Peptide > 53740I, Total Protein 5.4L, Albumin 1.9L, Globulin 3.5, Albumin/Globulin Ratio 0.5L 02/04/18 19:45: Lactic Acid Level 4.10H, Troponin I 0.014, Prothrombin Time 17.9H, Prothromb Time International Ratio 1.7H, Activated Partial Thromboplast Time 60H 02/04/18 20:00: Urine Color Brown, Urine Appearance Slightly cloudy, Urine pH 5, Urine Specific [place] 1.015, Urine Protein 3+H, Urine Glucose (UA) Negative, Urine Ketones Negative, Urine Occult Blood 2+H, Urine Nitrite Negative, Urine Bilirubin 2+H, Urine Ictotest Positive, Urine Urobilinogen 8H, Urine Leukocyte Esterase 1+H, Urine RBC 2-4H, Urine WBC 2-4, Urine Squamous Epithelial Cells Occasional, Urine Amorphous Sediment ManyH, Urine Bacteria Few, Urine Hyaline Casts 0-2H, Urine Granular Casts 2-4H, Urine Fine Granular Casts 2-4H 02/05/18 05:00: White Blood Count 13.1H, Red Blood Count 5.16, Hemoglobin 13.1L, Hematocrit 40.6L, Mean Corpuscular Volume 79L, Mean Corpuscular Hemoglobin 25.5L, Mean Corpuscular Hemoglobin Concent 32.4, Red Cell Distribution Width 21.5H, Platelet Count 142L, Mean Platelet Volume 12.0H, Neutrophils (%) (Auto) , Lymphocytes (%) (Auto) , Monocytes (%) (Auto) , Eosinophils (%) (Auto) , Basophils (%) (Auto) , Differential Total Cells Counted 100, Neutrophils % ( Manual) 81H, Lymphocytes % (Manual) 3L, Monocytes % (Manual) 3, Eosinophils % ( Manual) 0, Basophils % (Manual) 0, Band Neutrophils 13H, Platelet Estimate DecreasedL, Platelet Morphology Normal, Polychromasia 1+, Anisocytosis 2+, Sodium Level 140, Potassium Level 3.9, Chloride Level 105, Carbon Dioxide Level 26, Anion Gap 9, Blood Urea Nitrogen 38H, Creatinine 2.0H, Estimat Glomerular Filtration Rate , Glucose Level 201#H, Calcium Level 7.2L, Total Bilirubin 6.5H , Direct Bilirubin 5.4H, Aspartate Amino Transf (AST/SGOT) 145H, Alanine Aminotransferase (ALT/SGPT) 116H, Alkaline Phosphatase 402H, Total Protein 4.9L , Albumin 1.6L, Random Vancomycin Level 10.7 02/05/18 09:12: Lactic Acid Level 4.30H Height (Feet): 5 Height (Inches): 5.00 Weight (Pounds): 132 Cardiovascular: normal rate Respiratory/Chest: lungs clear Edema: no edema noted GLENN Campos Feb 05, 2018 12:05
[2018-02-05] MEDS: Norepinephrine Bitartrate 8 MG in D5W 500ml 492 ML IV SCH ×2 (16:00→18:32)
[2018-02-05] MEDS ORDERED: Norepinephrine Bitartrate 8 MG in D5W 500ml 492 ML IV SCH (16:00)
--- NOTE | 2018-02-05 17:51 | Pulmonolgy Critical Care Note ---
Critical Care - Asmt/Plan Assessment/Plan: 1. Respiratory insufficiency. 2. Sepsis with shock 3. Elevated liver function tests with concerns for cholecystitis versus cholangitis and obstructive jaundice. 4. Right lower lobe pneumonia on chest x-ray. 5. History of diabetes. 6. Hypertension. 7. Worsening renal insufficiency. 8. Urinary tract infection. 9. bactermia GNR iv abx fu cultures nebs pressors to titrate MAP greater than 65 mmhg wound care bs ctonorl IVF CR in am continue ICU level of care Respiratory: CXR, ABG Cardiac: continue pressors Renal: F/U I&O, keep IV fluid Infectious Disease: check cultures, continue antibiotics Endocrine: monitor blood sugar, check HgA1C Prophylaxis: Protonix Time Spent (Minutes): 50 Discussed with: nurses Critical Care - Objective Last 24 Hour Vital Signs Date Time Temp Pulse Resp B/P (MAP) Pulse Ox O2 Delivery O2 Flow Rate FiO2 02/05/18 17:00 102 22 92/75 98 Nasal Cannula 2.0 02/05/18 16:30 103 22 92/75 98 Nasal Cannula 2.0 02/05/18 16:00 100 02/05/18 16:00 98.9 102 21 96/68 100 Nasal Cannula 2.0 98.9 02/05/18 16:00 96/68 02/05/18 15:30 104 22 93/66 98 Nasal Cannula 2.0 02/05/18 15:00 102 22 92/64 96 Nasal Cannula 2.0 02/05/18 14:30 102 22 93/65 96 Nasal Cannula 2.0 02/05/18 14:00 104 21 97/54 96 Nasal Cannula 2.0 02/05/18 13:30 103 21 104/85 92 Nasal Cannula 2.0 02/05/18 13:00 103 21 93/65 95 Nasal Cannula 2.0 02/05/18 12:30 104 21 103/86 99 Nasal Cannula 2.0 02/05/18 12:00 101 02/05/18 12:00 98.7 103 21 105/88 99 Nasal Cannula 2.0 98.7 02/05/18 11:58 96/68 02/05/18 11:30 103 21 102/86 99 Nasal Cannula 2.0 02/05/18 11:00 101 21 102/80 99 Nasal Cannula 2.0 02/05/18 10:30 102 21 103/84 99 Nasal Cannula 2.0 02/05/18 10:00 103 25 106/86 99 Nasal Cannula 2.0 02/05/18 09:30 101 22 105/88 99 Nasal Cannula 2.0 02/05/18 09:00 104 21 106/85 98 Nasal Cannula 2.0 02/05/18 08:30 103 22 95/72 98 Nasal Cannula 2.0 02/05/18 08:23 96/72 02/05/18 08:00 102 02/05/18 08:00 102 24 96/72 99 Nasal Cannula 2.0 02/05/18 07:30 97.8 98 21 90/75 99 Nasal Cannula 2.0 97.8 02/05/18 07:00 93/78 02/05/18 07:00 99 21 93/78 99 Nasal Cannula 2.0 02/05/18 06:30 98 22 93/78 99 Nasal Cannula 2.0 02/05/18 06:00 98 18 98/73 100 Nasal Cannula 2.0 02/05/18 06:00 98/73 02/05/18 05:30 98 16 102/84 100 Nasal Cannula 2.0 02/05/18 05:00 99 16 100/82 100 Nasal Cannula 2.0 02/05/18 04:30 99 16 100/82 100 Nasal Cannula 2.0 02/05/18 04:10 97/57 02/05/18 04:00 97.5 101 21 106/82 100 Nasal Cannula 2.0 97.5 02/05/18 04:00 101 02/05/18 03:30 99 25 98/60 100 Nasal Cannula 2.0 02/05/18 03:00 82 18 96/74 100 Nasal Cannula 2.0 02/05/18 02:30 90 21 96/72 99 Nasal Cannula 2.0 02/05/18 02:00 90 21 110/80 99 Nasal Cannula 2.0 02/05/18 02:00 117/97 02/05/18 01:45 93 20 98/66 99 Nasal Cannula 2.0 02/05/18 01:00 97 23 110/80 99 Nasal Cannula 2.0 02/05/18 00:30 101 23 108/76 99 Nasal Cannula 2.0 02/05/18 00:00 92 02/05/18 00:00 100 23 103/78 99 Nasal Cannula 2.0 02/04/18 23:45 88 22 70/30 99 Nasal Cannula 2.0 02/04/18 23:30 92 21 92/55 99 Nasal Cannula 2.0 02/04/18 23:00 92 20 102/64 99 Nasal Cannula 2.0 02/04/18 22:45 93 21 100/73 97 Nasal Cannula 2.0 02/04/18 22:44 102/72 02/04/18 22:20 93 21 102/64 97 Nasal Cannula 2.0 02/04/18 22:20 92 02/04/18 22:15 92 23 98/53 96 Nasal Cannula 2.0 02/04/18 22:10 96.4 87 17 99/71 99 Nasal Cannula 2.0 96.4 02/04/18 22:00 96.4 87 17 99/71 99 Nasal Cannula 2.0 96.4 02/04/18 21:22 96.4 90 18 93/66 98 Nasal Cannula 2.0 96.4 02/04/18 20:16 96.2 90 17 99/81 100 Room Air 96.2 02/04/18 20:00 96/72 02/04/18 19:50 89/59 02/04/18 19:46 96.3 14 89/59 95 Room Air 96.3 02/04/18 19:45 71/43 02/04/18 19:35 70/53 02/04/18 19:35 70/53 02/04/18 19:35 70/53 02/04/18 19:35 70/53 02/04/18 19:35 70/53 02/04/18 19:35 70/53 02/04/18 19:35 70/53 02/04/18 19:35 70/53 02/04/18 19:25 77/51 02/04/18 19:25 77/51 02/04/18 19:25 77/51 02/04/18 19:25 77/51 02/04/18 19:25 77/51 02/04/18 19:25 77/51 02/04/18 19:25 77/51 02/04/18 19:25 77/51 02/04/18 19:15 73/43 02/04/18 19:15 73/43 02/04/18 19:15 73/43 02/04/18 19:15 73/43 02/04/18 19:15 73/43 02/04/18 19:15 73/43 02/04/18 19:15 73/43 02/04/18 19:15 73/43 02/04/18 19:05 74/42 02/04/18 19:05 /42 02/04/18 19:05 /42 02/04/18 19:05 /42 02/04/18 19:05 /02/04/18 19:05 74/42 02/04/18 19:05 74/42 02/04/18 19:05 /42 02/04/18 19:01 [id number] 02/04/18 19:00 72/57 Status: awake Condition: critical Lungs: rhonchi Heart: HR/BP unstable Abdomen: soft, non-tender Extremities: edema Micro: Microbiology Date/Time Source Procedure Growth Status 02/04/18 16:21 Blood Blood Culture - Preliminary Resulted 02/04/18 16:21 Blood Blood Culture - Preliminary Resulted 02/04/18 16:29 Nasal Nares Influenza Types A,B Antigen (PADMINI) - Final Complete Accucheck: 99 Critical Care - Subjective Condition: critical Sputum Amount: None I&O: Intake and Output 02/04/18 02/05/18 19:00 07:00 Intake Total 0 ml 1632.50 ml Output Total 65 ml Balance 0 ml 1567.50 ml Intake Oral 0 ml 0 ml IV Total 1632.50 ml Output Urine Total 65 ml # Bowel Movements 2 Subjective: still on pressors more awake no distress npo no fever positive BC with GNR elevated lactate on abx at bedside positive uop'; Labs: Microbiology Date/Time Source Procedure Growth Status 02/04/18 16:21 Blood Blood Culture - Preliminary Resulted 02/04/18 16:21 Blood Blood Culture - Preliminary Resulted 02/04/18 16:29 Nasal Nares Influenza Types A,B Antigen (PADMINI) - Final Complete Laboratory Tests Test 02/04/18 19:45 02/04/18 20:00 02/05/18 05:00 02/05/18 09:12 Prothrombin Time 17.9 SEC (9.30-11.50) H Prothromb Time International Ratio 1.7 (0.9-1.1) H Activated Partial Thromboplast Time 60 SEC (23-33) H Lactic Acid Level 4.10 mmol/L (0.66-2.22) H 4.30 mmol/L (0.66-2.22) H Troponin I 0.014 ng/mL (0.000-0.056) Urine Color Brown Urine Appearance Slightly cloudy Urine pH 5 (4.5-8.0) Urine Specific [place] 1.015 (1.005-1.035) Urine Protein 3+ (NEGATIVE) H Urine Glucose (UA) Negative (NEGATIVE) Urine Ketones Negative (NEGATIVE) Urine Occult Blood 2+ (NEGATIVE) H Urine Nitrite Negative (NEGATIVE) Urine Bilirubin 2+ (NEGATIVE) H Urine Ictotest Positive Urine Urobilinogen 8 MG/DL (0.0-1.0) H Urine Leukocyte Esterase 1+ (NEGATIVE) H Urine RBC 2-4 /HPF (0 - 0) H Urine WBC 2-4 /HPF (0 - 0) Urine Squamous Epithelial Cells Occasional /LPF Urine Amorphous Sediment Many /LPF (NONE) H Urine Bacteria Few /HPF (NONE) Urine Hyaline Casts 0-2 /LPF (NONE) H Urine Granular Casts 2-4 /LPF (NONE) H Urine Fine Granular Casts 2-4 /LPF (NONE) H White Blood Count 13.1 K/UL (4.8-10.8) H Red Blood Count 5.16 M/UL (4.70-6.10) Hemoglobin 13.1 G/DL (14.2-18.0) L Hematocrit 40.6 % (42.0-52.0) L Mean Corpuscular Volume 79 FL (80-99) L Mean Corpuscular Hemoglobin 25.5 PG (27.0-31.0) L Mean Corpuscular Hemoglobin Concent 32.4 G/DL (32.0-36.0) Red Cell Distribution Width 21.5 % (11.6-14.8) H Platelet Count 142 K/UL (150-450) L Mean Platelet Volume 12.0 FL (6.5-10.1) H Neutrophils (%) (Auto) % (45.0-75.0) Lymphocytes (%) (Auto) % (20.0-45.0) Monocytes (%) (Auto) % (1.0-10.0) Eosinophils (%) (Auto) % (0.0-3.0) Basophils (%) (Auto) % (0.0-2.0) Differential Total Cells Counted 100 Neutrophils % (Manual) 81 % (45-75) H Lymphocytes % (Manual) 3 % (20-45) L Monocytes % (Manual) 3 % (1-10) Eosinophils % (Manual) 0 % (0-3) Basophils % (Manual) 0 % (0-2) Band Neutrophils 13 % (0-8) H Platelet Estimate Decreased L Platelet Morphology Normal Polychromasia 1+ Anisocytosis 2+ Sodium Level 140 MMOL/L (136-145) Potassium Level 3.9 MMOL/L (3.5-5.1) Chloride Level 105 MMOL/L (98-107) Carbon Dioxide Level 26 MMOL/L (21-32) Anion Gap 9 mmol/L (5-15) Blood Urea Nitrogen 38 mg/dL (7-18) H Creatinine 2.0 MG/DL (0.55-1.30) H Estimat Glomerular Filtration Rate mL/min (>60) Glucose Level 201 MG/DL (74-106) #H Calcium Level 7.2 MG/DL (8.5-10.1) L Total Bilirubin 6.5 MG/DL (0.2-1.0) H Direct Bilirubin 5.4 MG/DL (0.0-0.3) H Aspartate Amino Transf (AST/SGOT) 145 U/L (15-37) H Alanine Aminotransferase (ALT/SGPT) 116 U/L (12-78) H Alkaline Phosphatase 402 U/L (46-116) H Total Protein 4.9 G/DL (6.4-8.2) L Albumin 1.6 G/DL (3.4-5.0) L Random Vancomycin Level 10.7 ug/mL Test 02/05/18 13:30 Lactic Acid Level 4.70 mmol/L (0.66-2.22) H Current Medications Medications (Trade) Dose Ordered Sig/Myles Route PRN Reason Start Time Stop Time Status Last Admin Dose Admin Acetaminophen (Tylenol) 650 mg Q4H PRN RECTAL T > OR = 101 F 02/04/18 20:00 03/06/18 19:59 Chlorhexidine Gluconate (Breanna-Hex 2%) 1 applic DAILY@1999 TOPIC 02/05/18 20:00 03/07/18 19:59 Dextrose (Dextrose 50%) STAT PRN IV Hypoglycemia 02/04/18 20:00 03/06/18 19:59 Dextrose/Sodium Chloride 1,000 ml @ 100 mls/hr Q10H IV 02/04/18 20:49 03/06/18 20:48 02/05/18 06:42 Famotidine (Pepcid I.v.) 20 mg DAILY IVP 02/05/18 13:00 03/07/18 12:59 02/05/18 13:34 Gentamicin Sulfate 100 ml @ 200 mls/hr ONCE ONCE IVPB 02/05/18 18:30 02/05/18 18:59 Norepinephrine Bitartrate 4 mg/ Dextrose 250 ml @ 0 mls/hr Q24H IV 02/04/18 21:01 02/05/18 18:00 02/05/18 11:58 Norepinephrine Bitartrate 8 mg/ Dextrose 500 ml @ 0 mls/hr Q24H IV 02/05/18 18:01 03/07/18 18:00 02/05/18 16:00 Piperacillin Sod/ Tazobactam Sod 3.375 gm/Dextrose 110 ml @ 27.5 mls/hr Q8HR IVPB 02/04/18 22:00 02/11/18 21:59 02/05/18 13:35 Vancomycin HCl (Vanco rx to dose) 1 ea DAILY PRN MISC Per rx protocol 02/04/18 20:00 03/06/18 19:59 MARIA E MUNOZ DO Feb 05, 2018 17:51
[2018-02-05] MEDS: Dyna-Hex 2% Top Sol 2oz TOPIC SCH (21:03)
[2018-02-06] VITALS (33 sets, daily range): BP systolic 90–115; BP diastolic 59–88
[2018-02-06] MEDS ORDERED: Morphine Sulfate 4mg/ml Inj IVP PRN (00:15)
[2018-02-06] MEDS: Norepinephrine Bitartrate 8 MG in D5W 500ml 492 ML IV SCH ×2 (00:20→05:51)
[2018-02-06] MEDS: Piperacillin/Tazobactam 3.375 GM in D5W 110 ML IVPB SCH ×3 (05:51→21:50)
[2018-02-06 05:52] LABS: HEMATOCRIT 41.4 % (42.0-52.0); HEMOGLOBIN 13.3 G/DL (14.2-18.0); MEAN CORPUSCULAR VOLUME 80 FL (80-99); PLATELET COUNT 151 K/UL (150-450); RED CELL DISTRIBUTION WIDTH 22.1 % (11.6-14.8); WHITE BLOOD COUNT 11.3 K/UL (4.8-10.8)
[2018-02-06 06:14] LABS: ALANINE AMINOTRANSFERASE 125 U/L (12-78); ALBUMIN 1.6 G/DL (3.4-5.0); ALBUMIN/GLOBULIN RATIO 0.5 (1.0-2.7); ALKALINE PHOSPHATASE 357 U/L (46-116); ANION GAP 12 mmol/L (5-15); ASPARTATE AMINO TRANSFERASE 168 U/L (15-37); BILIRUBIN,TOTAL 5.5 MG/DL (0.2-1.0); BLOOD UREA NITROGEN 37 mg/dL (7-18); CARBON DIOXIDE 21 MMOL/L (21-32); CHLORIDE 104 MMOL/L (98-107); POTASSIUM 3.6 MMOL/L (3.5-5.1); SODIUM 137 MMOL/L (136-145)
--- NOTE | 2018-02-06 07:56 | Pulmonolgy Critical Care Note ---
Critical Care - Asmt/Plan Problems: (1) Septic shock (2) ARF (acute renal failure) (3) Decreased oral intake (4) Elevated LFTs (5) Hypotension (6) Renal failure (7) Hypoglycemia (8) Generalized weakness (9) Gram-neg septicemia (10) Protein calorie malnutrition Respiratory: adjust FIO2 - Titrate down FiO2 to keep SaO2 < 90% Cardiac: continue pressors - titrate NE to keep MAP > 65 , other - F/U TTE Renal: keep IV fluid, check electrolytes, other - F/U lactic acid Infectious Disease: check cultures, continue antibiotics Gastrointestinal: other - Consider NGT to start TF's Endocrine: monitor blood sugar Hematologic: monitor H/H Neurologic: other - Check STAT ABG, consider Narcan, minimize secretions Prophylaxis: Protonix, Heparin Disposition: keep in ICU Time Spent (Minutes): 40 Notes Reviewed: engagement liaison, renal, GI Discussed with: nurses, consultants Critical Care - Objective Last 24 Hour Vital Signs Date Time Temp Pulse Resp B/P (MAP) Pulse Ox O2 Delivery O2 Flow Rate FiO2 02/06/18 07:00 97.2 97 17 109/74 99 Nasal Cannula 2.0 97.2 02/06/18 07:00 97 12 109/74 100 Nasal Cannula 2.0 02/06/18 06:00 97 13 104/74 98 Nasal Cannula 2.0 02/06/18 05:51 107/84 02/06/18 05:30 96 4 115/86 89 Nasal Cannula 2.0 02/06/18 05:00 97.2 96 6 108/84 99 Nasal Cannula 2.0 97.2 02/06/18 04:00 96 02/06/18 04:00 96 15 107/84 98 Nasal Cannula 2.0 02/06/18 03:30 96 17 105/83 98 Nasal Cannula 2.0 02/06/18 03:00 90 15 107/80 98 Nasal Cannula 2.0 02/06/18 02:13 98.7 02/06/18 02:05 94 18 107/76 02/06/18 02:00 96 19 90/74 98 Nasal Cannula 2.0 02/06/18 01:44 97 17 99/74 98 Nasal Cannula 2.0 02/06/18 01:43 98.7 02/06/18 01:30 102 20 90/70 90 Nasal Cannula 2.0 02/06/18 01:00 100 20 96/77 90 Nasal Cannula 2.0 02/06/18 00:20 100/75 02/06/18 00:00 102 02/06/18 00:00 102 25 99/78 89 Nasal Cannula 2.0 02/05/18 23:00 101 27 100/75 78 Nasal Cannula 2.0 02/05/18 22:00 102 36 100/73 88 Nasal Cannula 2.0 02/05/18 21:30 103 22 110/78 100 Nasal Cannula 2.0 02/05/18 21:00 99 30 101/75 100 Nasal Cannula 2.0 02/05/18 20:30 100 29 107/74 100 Nasal Cannula 2.0 02/05/18 20:00 102 02/05/18 20:00 98.7 102 29 98/70 95 Nasal Cannula 2.0 98.7 02/05/18 19:00 102 20 98/65 99 Nasal Cannula 2.0 02/05/18 18:32 103/81 02/05/18 18:30 103 20 92/77 98 Nasal Cannula 2.0 02/05/18 18:00 102 22 98/79 96 Nasal Cannula 2.0 02/05/18 17:30 104 22 101/75 96 Nasal Cannula 2.0 02/05/18 17:00 102 22 92/75 98 Nasal Cannula 2.0 02/05/18 16:30 103 22 92/75 98 Nasal Cannula 2.0 02/05/18 16:00 100 02/05/18 16:00 98.9 102 21 96/68 100 Nasal Cannula 2.0 98.9 02/05/18 16:00 96/68 02/05/18 15:30 104 22 93/66 98 Nasal Cannula 2.0 02/05/18 15:00 102 22 92/64 96 Nasal Cannula 2.0 02/05/18 14:30 102 22 93/65 96 Nasal Cannula 2.0 02/05/18 14:00 104 21 97/54 96 Nasal Cannula 2.0 02/05/18 13:30 103 21 104/85 92 Nasal Cannula 2.0 02/05/18 13:00 103 21 93/65 95 Nasal Cannula 2.0 02/05/18 12:30 104 21 103/86 99 Nasal Cannula 2.0 3/25/18 12:00 101 02/05/18 12:00 98.7 103 21 105/88 99 Nasal Cannula 2.0 98.7 02/05/18 11:58 96/68 02/05/18 11:30 103 21 102/86 99 Nasal Cannula 2.0 02/05/18 11:00 101 21 102/80 99 Nasal Cannula 2.0 02/05/18 10:30 102 21 103/84 99 Nasal Cannula 2.0 02/05/18 10:00 103 25 106/86 99 Nasal Cannula 2.0 02/05/18 09:30 101 22 105/88 99 Nasal Cannula 2.0 02/05/18 09:00 104 21 106/85 98 Nasal Cannula 2.0 02/05/18 08:30 103 22 95/72 98 Nasal Cannula 2.0 02/05/18 08:23 96/72 02/05/18 08:00 102 02/05/18 08:00 102 24 96/72 99 Nasal Cannula 2.0 Status: somnolent Condition: critical HEENT: atraumatic Neck: full ROM Lungs: chest wall tender Heart: HR/BP stable - on 8 mcg NE Abdomen: soft, non-tender, feeding tube Extremities: edema - 1+ PAULINA Micro: Microbiology Date/Time Source Procedure Growth Status 02/04/18 16:21 Blood Blood Culture - Preliminary Resulted 02/04/18 16:21 Blood Blood Culture - Preliminary Resulted 02/04/18 16:29 Nasal Nares Influenza Types A,B Antigen (PADMINI) - Final Complete Accucheck: 99 Critical Care - Subjective ROS Limited/Unobtainable: Yes ICU Day: 3 Intubation Day: n/a Interval Events: KYLIE, recieved MSO4 4 mg IV 6 hours ago, now obtunded No cough, + Bm, no diarrhea, + having hematuria Condition: critical IV Access: peripheral - R IJ EKG Rhythm: Sinus Rhythm Sputum Amount: None Fluids: D5NS@100 I&O: Intake and Output 02/05/18 02/06/18 19:00 07:00 Intake Total 1949.0 ml 1693.625 ml Output Total 80 ml 120 ml Balance 1869.0 ml 1573.625 ml IV Total 1949.0 ml 1693.625 ml Output Urine Total 80 ml 120 ml # Bowel Movements 3 3 Subjective: Not obtainable Labs: Laboratory Tests Test 02/05/18 09:12 02/05/18 13:30 02/05/18 20:05 02/06/18 05:00 Lactic Acid Level 4.30 mmol/L (0.66-2.22) H 4.70 mmol/L (0.66-2.22) H 4.20 mmol/L (0.66-2.22) H White Blood Count 11.3 K/UL (4.8-10.8) H Red Blood Count 5.20 M/UL (4.70-6.10) Hemoglobin 13.3 G/DL (14.2-18.0) L Hematocrit 41.4 % (42.0-52.0) L Mean Corpuscular Volume 80 FL (80-99) Mean Corpuscular Hemoglobin 25.5 PG (27.0-31.0) L Mean Corpuscular Hemoglobin Concent 32.0 G/DL (32.0-36.0) Red Cell Distribution Width 22.1 % (11.6-14.8) H Platelet Count 151 K/UL (150-450) Mean Platelet Volume 13.9 FL (6.5-10.1) H Neutrophils (%) (Auto) % (45.0-75.0) Lymphocytes (%) (Auto) % (20.0-45.0) Monocytes (%) (Auto) % (1.0-10.0) Eosinophils (%) (Auto) % (0.0-3.0) Basophils (%) (Auto) % (0.0-2.0) Neutrophils % (Manual) Pending Lymphocytes % (Manual) Pending Platelet Estimate Pending Platelet Morphology Pending Sodium Level 137 MMOL/L (136-145) Potassium Level 3.6 MMOL/L (3.5-5.1) Chloride Level 104 MMOL/L (98-107) Carbon Dioxide Level 21 MMOL/L (21-32) Anion Gap 12 mmol/L (5-15) Blood Urea Nitrogen 37 mg/dL (7-18) H Creatinine 2.0 MG/DL (0.55-1.30) H Estimat Glomerular Filtration Rate mL/min (>60) Glucose Level 234 MG/DL (74-106) H Calcium Level 7.0 MG/DL (8.5-10.1) L Total Bilirubin 5.5 MG/DL (0.2-1.0) H Direct Bilirubin 4.0 MG/DL (0.0-0.3) H Aspartate Amino Transf (AST/SGOT) 168 U/L (15-37) H Alanine Aminotransferase (ALT/SGPT) 125 U/L (12-78) H Alkaline Phosphatase 357 U/L (46-116) H Total Protein 4.9 G/DL (6.4-8.2) L Albumin 1.6 G/DL (3.4-5.0) L Globulin 3.3 g/dL Albumin/Globulin Ratio 0.5 (1.0-2.7) L Hepatitis A IgM Antibody Pending Hepatitis B Surface Antigen Pending Hepatitis B Core IgM Antibody Pending Hepatitis C Antibody Pending MATHIEU MANRIQUE M.D. Feb 06, 2018 07:56
[2018-02-06] MEDS: Heparin 5000 units/ml inj SUBQ SCH ×2 (08:47→20:31)
--- NOTE | 2018-02-06 11:01 | Diagnostic Imaging Report ---
Indication: Post nasogastric tube placement Technique: One view of the is upper abdomen Comparison: Field Operations Supervisor image from CT scan dated 02/04/2018 Findings: There is a nasogastric tube in place, tip projecting at the level of the gastric body, possible port probably just beyond the gastroesophageal junction. The visualized bowel gas is grossly unremarkable The visualized portions of the chest demonstrate bilateral right greater than left pleural effusions, cardiomegaly, interstitial congestion, and a right jugular central venous catheter Impression: Satisfactory nasogastric intubation Other findings as noted
--- NOTE | 2018-02-06 12:13 | General Progress Note ---
Assessment/Plan Problem List: (1) Septic shock ICD Codes: A41.9 - Sepsis, unspecified organism; R65.21 - Severe sepsis with septic shock SNOMED: 97071706 (2) ARF (acute renal failure) ICD Codes: N17.9 - Acute kidney failure, unspecified SNOMED: 16356344 (3) Elevated LFTs ICD Codes: R79.89 - Other specified abnormal findings of blood chemistry SNOMED: 141339150, 963924514 (4) Generalized weakness ICD Codes: R53.1 - Weakness SNOMED: 48491887 (5) Protein calorie malnutrition ICD Codes: E46 - Unspecified protein-calorie malnutrition SNOMED: 911465871 (6) Gram-neg septicemia ICD Codes: A41.50 - Gram-negative sepsis, unspecified SNOMED: 053393378 (7) Cardiomyopathy ICD Codes: I42.9 - Cardiomyopathy, unspecified SNOMED: 81005491 Status Narrative still on pressors low EF Assessment/Plan IVF abxs Discussed with ID and pulmonary follow labs cont with pressors Discussed with RN GI F/U follow labs cardiology consult Subjective Allergies: Coded Allergies: No Known Allergies (Unverified , 02/04/18) Subjective got 4 mg Morphin lethargic Objective Last 24 Hour Vital Signs Date Time Temp Pulse Resp B/P (MAP) Pulse Ox O2 Delivery O2 Flow Rate FiO2 02/06/18 08:00 98 12 106/77 98 Nasal Cannula 2.0 02/06/18 07:30 Nasal Cannula 4.0 36 02/06/18 07:30 97 Nasal Cannula 4.0 36 02/06/18 07:00 97.2 97 17 109/74 99 Nasal Cannula 2.0 97.2 02/06/18 07:00 97 12 109/74 100 Nasal Cannula 2.0 02/06/18 06:00 97 13 104/74 98 Nasal Cannula 2.0 02/06/18 05:51 107/84 02/06/18 05:30 96 4 115/86 89 Nasal Cannula 2.0 02/06/18 05:00 97.2 96 6 108/84 99 Nasal Cannula 2.0 97.2 02/06/18 04:00 96 02/06/18 04:00 96 15 107/84 98 Nasal Cannula 2.0 02/06/18 03:30 96 17 105/83 98 Nasal Cannula 2.0 02/06/18 03:00 90 15 107/80 98 Nasal Cannula 2.0 02/06/18 02:13 98.7 02/06/18 02:05 94 18 107/76 02/06/18 02:00 96 19 90/74 98 Nasal Cannula 2.0 02/06/18 01:44 97 17 99/74 98 Nasal Cannula 2.0 02/06/18 01:43 98.7 02/06/18 01:30 102 20 90/70 90 Nasal Cannula 2.0 02/06/18 01:00 100 20 96/77 90 Nasal Cannula 2.0 02/06/18 00:20 100/75 02/06/18 00:00 102 02/06/18 00:00 102 25 99/78 89 Nasal Cannula 2.0 02/05/18 23:00 101 27 100/75 78 Nasal Cannula 2.0 02/05/18 22:00 102 36 100/73 88 Nasal Cannula 2.0 02/05/18 21:30 103 22 110/78 100 Nasal Cannula 2.0 02/05/18 21:00 99 30 101/75 100 Nasal Cannula 2.0 02/05/18 20:30 100 29 107/74 100 Nasal Cannula 2.0 02/05/18 20:00 102 02/05/18 20:00 98.7 102 29 98/70 95 Nasal Cannula 2.0 98.7 02/05/18 19:00 102 20 98/65 99 Nasal Cannula 2.0 02/05/18 18:32 103/81 02/05/18 18:30 103 20 92/77 98 Nasal Cannula 2.0 02/05/18 18:00 102 22 98/79 96 Nasal Cannula 2.0 02/05/18 17:30 104 22 101/75 96 Nasal Cannula 2.0 02/05/18 17:00 102 22 92/75 98 Nasal Cannula 2.0 02/05/18 16:30 103 22 92/75 98 Nasal Cannula 2.0 02/05/18 16:00 100 02/05/18 16:00 98.9 102 21 96/68 100 Nasal Cannula 2.0 98.9 02/05/18 16:00 96/68 02/05/18 15:30 104 22 93/66 98 Nasal Cannula 2.0 02/05/18 15:00 102 22 92/64 96 Nasal Cannula 2.0 02/05/18 14:30 102 22 93/65 96 Nasal Cannula 2.0 02/05/18 14:00 104 21 97/54 96 Nasal Cannula 2.0 02/05/18 13:30 103 21 104/85 92 Nasal Cannula 2.0 02/05/18 13:00 103 21 93/65 95 Nasal Cannula 2.0 02/05/18 12:30 104 21 103/86 99 Nasal Cannula 2.0 02/05/18 12:00 101 02/05/18 12:00 98.7 103 21 105/88 99 Nasal Cannula 2.0 98.7 Intake and Output 02/05/18 02/06/18 19:00 07:00 Intake Total 1949.0 ml 1693.625 ml Output Total 80 ml 120 ml Balance 1869.0 ml 1573.625 ml IV Total 1949.0 ml 1693.625 ml Output Urine Total 80 ml 120 ml # Bowel Movements 3 3 Laboratory Tests 02/05/18 13:30: Lactic Acid Level 4.70H 02/05/18 20:05: Lactic Acid Level 4.20H 02/06/18 05:00: White Blood Count 11.3H, Red Blood Count 5.20, Hemoglobin 13.3L, Hematocrit 41.4L, Mean Corpuscular Volume 80, Mean Corpuscular Hemoglobin 25.5L, Mean Corpuscular Hemoglobin Concent 32.0, Red Cell Distribution Width 22.1H, Platelet Count 151, Mean Platelet Volume 13.9H, Neutrophils (%) (Auto) , Lymphocytes (%) (Auto) , Monocytes (%) (Auto) , Eosinophils (%) (Auto) , Basophils (%) (Auto) , Differential Total Cells Counted 100, Neutrophils % ( Manual) 85H, Lymphocytes % (Manual) 6L, Monocytes % (Manual) 6, Eosinophils % ( Manual) 1, Basophils % (Manual) 0, Band Neutrophils 2, Platelet Estimate Adequate, Platelet Morphology Normal, Anisocytosis 2+, Sodium Level 137, Potassium Level 3.6, Chloride Level 104, Carbon Dioxide Level 21, Anion Gap 12, Blood Urea Nitrogen 37H, Creatinine 2.0H, Estimat Glomerular Filtration Rate , Glucose Level 234H, Calcium Level 7.0L, Total Bilirubin 5.5H, Direct Bilirubin 4.0H, Aspartate Amino Transf (AST/SGOT) 168H, Alanine Aminotransferase (ALT/SGPT ) 125H, Alkaline Phosphatase 357H, Total Protein 4.9L, Albumin 1.6L, Globulin 3.3, Albumin/Globulin Ratio 0.5L, Hepatitis A IgM Antibody [Pending], Hepatitis B Surface Antigen [Pending], Hepatitis B Core IgM Antibody [Pending], Hepatitis C Antibody [Pending] 02/06/18 07:59: Arterial Blood pH 7.290L, Arterial Blood Partial Pressure CO2 38.8, Arterial Blood Partial Pressure O2 100.3H, Arterial Blood HCO3 18.4L, Arterial Blood Oxygen Saturation 96.6, Arterial Blood Base Excess -7.6, Biju Test Positive 02/06/18 09:00: Lactic Acid Level 2.10 Height (Feet): 5 Height (Inches): 5.00 Weight (Pounds): 133 Cardiovascular: normal rate Respiratory/Chest: rhonchi - bilaterally Abdomen: soft Edema: 1+ Generalized GLENN RODRIGUEZ Feb 06, 2018 12:13
--- NOTE | 2018-02-06 13:39 | Diagnostic Imaging Report ---
Indication: Abnormal liver function tests and abnormal renal function tests Technique: Hernandez-scale and duplex images of the upper abdomen were obtained Comparison: Reference made to abdomen and pelvis CT dated 02/04/2018 Findings: Gallbladder demonstrates sludge and possibly tiny stones. Gallbladder wall is borderline thickened, measuring just over 3 mm in thickness. No pericholecystic fluid. Common bile duct measures 7 mm in diameter. There is mild intrahepatic biliary ductal dilatation. Liver demonstrates normal echogenicity, but there is slight surface nodularity. There is a small amount of ascites fluid present. Portal vein and hepatic veins are patent. Pancreas is incompletely visualized due to overlying bowel gas, visualized portions are unremarkable. Spleen is unremarkable. Left kidney measures 10.9 cm in length. Right kidney measures 10 cm length. Both kidneys demonstrate slightly increased echogenicity There is no hydronephrosis. No focal abnormality . Non-aneurysmal abdominal aorta . There are bilateral pleural effusions. Also noted is a pericardial effusion. Impression: Gallbladder sludge, possible tiny stones Mild intrahepatic and extra hepatic biliary ductal dilatation, no significant obstruction a possibility. MRCP may be useful for better characterization Bilateral pleural effusions, ascites, and pericardial effusion. These were also demonstrated on recent CT scan Questionable hepatic surface nodularity, could indicate early cirrhotic changes. Bilateral increased renal echogenicity, consistent with medical renal disease Note suboptimal visualization of the pancreas
[2018-02-06] MEDS: NovoLOG Insulin Flexpen SUBQ SCH ×3 (13:50→21:46)
--- NOTE | 2018-02-06 14:03 | General Progress Note ---
Progress Note Progress Note Afebrile still on pressors but stable VS. Abdomen soft WBC down 12,700 Platelets up 151,000 BUN 37 Cr 2.0 T. bilirubin/direct 5.5/4.0 (was 6.5/5.4) Albumin 1.6 Ultrasound: gallbladder sludge possible small stones, borderline wall thickening, no pericholecystic fluid mildly dilated bile ducts (intra-hepatic and extra-hepatic Imp. R/O CBD stones with partial obstruction Plan; Per GI - ERCP - if stones will need cholecystectomy once current status stable ISMAEL GOODWIN Feb 06, 2018 14:03
--- NOTE | 2018-02-06 18:39 | Cardiology Report ---
APPROVED REPORT EXAM: Two-dimensional and M-mode echocardiogram with Doppler and color Doppler. INDICATION Congestive Heart Failure M-Mode DIMENSIONS IVSd0.7 (0.7-1.1cm)Left Atrium (MM)5.2 (1.6-4.0cm) LVDd6.1 (3.5-5.6cm)Aortic Root2.6 (2.0-3.7cm) PWd1.0 (0.7-1.1cm)Aortic Cusp Exc.1.5 (1.5-2.0cm) LVDs5.2 (2.5-4.0cm) PWs1.6 cm Mild left ventricular enlargement. Severe global left ventricular hypokinesis except posterior wall which shows normal wall motion, ischemic cardiomyopathy cannot be excluded. Left ventricular ejection fraction estimated to be 15-20%. No evidence of left ventricular hypertrophy. Small pericardial effusion. Large pleural effusion. Mild bi-atrial enlargement. Mild right ventricular enlargement. Mild focal aortic valve sclerosis with adequate cusp excursion. Mildly thickened mitral valve leaflets with normal excursion. Mild mitral annulus and aortic root calcification. Normal pulmonic valve structure. Normal tricuspid valve structure. IVC dilated at 2.2 cm without physiological collapse, estimated RAP is 15 mmHg. A color flow and spectral Doppler study was performed and revealed: Mild aortic insufficiency. LVOT pressure gradient may be underestimated due to low systolic function. Severe mitral regurgitation. Mitral inflow indicates increased left atrial pressure, suggestive restrictive pattern (Grade III). Severe tricuspid regurgitation. Tricuspid systolic velocities suggests peak right ventricular systolic pressure of 68 mmHg, consistent with severe pulmonary hypertension. Mild pulmonic regurgitation present.
[2018-02-06] MEDS ORDERED: DOBUTamine Inj 500 MG in D5W 210 ML IV SCH (18:45)
--- NOTE | 2018-02-06 18:45 | Cardiology Progress Note ---
Assessment/Plan Assessment/Plan septic shock cardiomyopathy chronicity ? MR/TR bilateral pleural effusion anasarca coagulopathy abn lft ? passive congestion hypoalbuminemia proteinuria is being maintained on pressors at this time not an urgent need for a diuresis until sepsis resolves may need addition of dobutamine for cardiac support ivc size was normal at the time echo was doen serum ammonia check ? [id number] Objective Last 24 Hour Vital Signs Date Time Temp Pulse Resp B/P (MAP) Pulse Ox O2 Delivery O2 Flow Rate FiO2 02/06/18 18:00 86 14 93/73 96 Nasal Cannula 2.0 02/06/18 17:00 86 14 92/65 96 Nasal Cannula 2.0 02/06/18 16:00 97.6 86 15 93/66 100 Nasal Cannula 2.0 97.6 02/06/18 16:00 90 02/06/18 15:00 85 15 99/64 100 Nasal Cannula 2.0 02/06/18 14:00 97.7 74 12 100/65 100 Nasal Cannula 2.0 97.7 02/06/18 13:00 89 15 103/74 97 Nasal Cannula 2.0 02/06/18 12:00 90 02/06/18 12:00 89 15 99/69 98 Nasal Cannula 2.0 02/06/18 10:00 91 14 102/77 98 Nasal Cannula 2.0 02/06/18 09:00 91 15 106/88 98 Nasal Cannula 2.0 02/06/18 08:00 91 02/06/18 08:00 98 12 106/77 98 Nasal Cannula 2.0 02/06/18 07:30 Nasal Cannula 4.0 36 02/06/18 07:30 97 Nasal Cannula 4.0 36 02/06/18 07:00 97.2 97 17 109/74 99 Nasal Cannula 2.0 97.2 02/06/18 07:00 97 12 109/74 100 Nasal Cannula 2.0 02/06/18 06:00 97 13 104/74 98 Nasal Cannula 2.0 02/06/18 05:51 107/84 02/06/18 05:30 96 4 115/86 89 Nasal Cannula 2.0 02/06/18 05:00 97.2 96 6 108/84 99 Nasal Cannula 2.0 97.2 02/06/18 04:00 96 02/06/18 04:00 96 15 107/84 98 Nasal Cannula 2.0 02/06/18 03:30 96 17 105/83 98 Nasal Cannula 2.0 02/06/18 03:00 90 15 107/80 98 Nasal Cannula 2.0 02/06/18 02:13 98.7 02/06/18 02:05 94 18 107/76 02/06/18 02:00 96 19 90/74 98 Nasal Cannula 2.0 02/06/18 01:44 97 17 99/74 98 Nasal Cannula 2.0 02/06/18 01:43 98.7 02/06/18 01:30 102 20 90/70 90 Nasal Cannula 2.0 02/06/18 01:00 100 20 96/77 90 Nasal Cannula 2.0 02/06/18 00:20 100/75 02/06/18 00:00 102 02/06/18 00:00 102 25 99/78 89 Nasal Cannula 2.0 02/05/18 23:00 101 27 100/75 78 Nasal Cannula 2.0 02/05/18 22:00 102 36 100/73 88 Nasal Cannula 2.0 02/05/18 21:30 103 22 110/78 100 Nasal Cannula 2.0 02/05/18 21:00 99 30 101/75 100 Nasal Cannula 2.0 02/05/18 20:30 100 29 107/74 100 Nasal Cannula 2.0 02/05/18 20:00 102 02/05/18 20:00 98.7 102 29 98/70 95 Nasal Cannula 2.0 98.7 02/05/18 19:00 102 20 98/65 99 Nasal Cannula 2.0 Intake and Output 02/05/18 02/06/18 19:00 07:00 Intake Total 1949.0 ml 1903.625 ml Output Total 80 ml 120 ml Balance 1869.0 ml 1783.625 ml IV Total 1949.0 ml 1903.625 ml Output Urine Total 80 ml 120 ml # Bowel Movements 3 3 Laboratory Tests Test 02/05/18 20:05 02/06/18 05:00 02/06/18 07:59 02/06/18 09:00 Lactic Acid Level 4.20 mmol/L (0.66-2.22) H 2.10 mmol/L (0.66-2.22) White Blood Count 11.3 K/UL (4.8-10.8) H Red Blood Count 5.20 M/UL (4.70-6.10) Hemoglobin 13.3 G/DL (14.2-18.0) L Hematocrit 41.4 % (42.0-52.0) L Mean Corpuscular Volume 80 FL (80-99) Mean Corpuscular Hemoglobin 25.5 PG (27.0-31.0) L Mean Corpuscular Hemoglobin Concent 32.0 G/DL (32.0-36.0) Red Cell Distribution Width 22.1 % (11.6-14.8) H Platelet Count 151 K/UL (150-450) Mean Platelet Volume 13.9 FL (6.5-10.1) H Neutrophils (%) (Auto) % (45.0-75.0) Lymphocytes (%) (Auto) % (20.0-45.0) Monocytes (%) (Auto) % (1.0-10.0) Eosinophils (%) (Auto) % (0.0-3.0) Basophils (%) (Auto) % (0.0-2.0) Differential Total Cells Counted 100 Neutrophils % (Manual) 85 % (45-75) H Lymphocytes % (Manual) 6 % (20-45) L Monocytes % (Manual) 6 % (1-10) Eosinophils % (Manual) 1 % (0-3) Basophils % (Manual) 0 % (0-2) Band Neutrophils 2 % (0-8) Platelet Estimate Adequate Platelet Morphology Normal Anisocytosis 2+ Sodium Level 137 MMOL/L (136-145) Potassium Level 3.6 MMOL/L (3.5-5.1) Chloride Level 104 MMOL/L (98-107) Carbon Dioxide Level 21 MMOL/L (21-32) Anion Gap 12 mmol/L (5-15) Blood Urea Nitrogen 37 mg/dL (7-18) H Creatinine 2.0 MG/DL (0.55-1.30) H Estimat Glomerular Filtration Rate mL/min (>60) Glucose Level 234 MG/DL (74-106) H Calcium Level 7.0 MG/DL (8.5-10.1) L Total Bilirubin 5.5 MG/DL (0.2-1.0) H Direct Bilirubin 4.0 MG/DL (0.0-0.3) H Aspartate Amino Transf (AST/SGOT) 168 U/L (15-37) H Alanine Aminotransferase (ALT/SGPT) 125 U/L (12-78) H Alkaline Phosphatase 357 U/L (46-116) H Total Protein 4.9 G/DL (6.4-8.2) L Albumin 1.6 G/DL (3.4-5.0) L Globulin 3.3 g/dL Albumin/Globulin Ratio 0.5 (1.0-2.7) L Hepatitis A IgM Antibody Pending Hepatitis B Surface Antigen Pending Hepatitis B Core IgM Antibody Pending Hepatitis C Antibody Pending Arterial Blood pH 7.290 (7.350-7.450) Arterial Blood Partial Pressure CO2 38.8 mmHg (35.0-45.0) Arterial Blood Partial Pressure O2 100.3 mmHg (75.0-100.0) H Arterial Blood HCO3 18.4 mmol/L (22.0-26.0) L Arterial Blood Oxygen Saturation 96.6 % (92.0-98.0) Arterial Blood Base Excess -7.6 Biju Test Positive Test 02/06/18 12:00 Arterial Blood pH 7.340 (7.350-7.450) Arterial Blood Partial Pressure CO2 33.7 mmHg (35.0-45.0) L Arterial Blood Partial Pressure O2 111.2 mmHg (75.0-100.0) H Arterial Blood HCO3 17.8 mmol/L (22.0-26.0) L Arterial Blood Oxygen Saturation 97.8 % (92.0-98.0) Arterial Blood Base Excess -7.0 Biju Test Positive Microbiology Date/Time Source Procedure Growth Status 02/04/18 16:21 Blood Blood Culture - Preliminary Gram Negative Bacillus 1 Resulted 02/04/18 16:21 Blood Blood Culture - Preliminary Gram Negative Bacillus 1 Resulted 02/04/18 16:29 Nasal Nares Influenza Types A,B Antigen (PADMINI) - Final Complete PRINCESS MCCOY Feb 06, 2018 18:45
--- NOTE | 2018-02-06 19:19 | Cardiology Report ---
APPROVED REPORT EKG Measurement Heart [id number] Normal sinus rhythm Prolonged QT Abnormal ECG
[2018-02-06] MEDS: Dyna-Hex 2% Top Sol 2oz TOPIC SCH (20:20)
--- NOTE | 2018-02-06 21:31 | Consultation ---
DATE OF CONSULTATION: 02/06/2018 INFECTIOUS DISEASE CONSULTATION CONSULTING PHYSICIAN: Robin Rajan M.D. PRIMARY ATTENDING PHYSICIAN: Vito Rajan M.D. REASON FOR CONSULTATION: Septic shock, gram-negative sepsis. HISTORY OF PRESENT ILLNESS: The patient is an 82-year-old male admitted on 02/04/2018 from home, had decreased oral intake, weakness, decreased appetite, confusion and decreased blood pressure. He was admitted to ICU and started on vasopressor, currently getting Levophed. A central line was placed for the patient and started on antibiotics. Blood culture at the time of admission growing gram-negative rods. PAST MEDICAL HISTORY: Significant for diabetes mellitus, hypertension, and coronary artery disease status post stenting. MEDICATIONS: Getting insulin, heparin, norepinephrine, famotidine, Zosyn, get a dose of gentamicin and is on vancomycin. ALLERGIES: No known drug allergy. SOCIAL HISTORY: . No history of alcohol, drug abuse, or smoking. No other history obtainable by the patient. The patient is unresponsive. PHYSICAL EXAMINATION: VITAL SIGNS: Temperature 97.2 degrees, pulse 98, and blood pressure 106/77. HEAD AND NECK: The patient has right internal jugular triple-lumen catheter. He has a NG tube. HEART: Regular, tachycardic. LUNGS: Bilateral rhonchi. ABDOMEN: Soft and nontender. EXTREMITY: He has edema of the legs. NEUROLOGIC: Lethargic. LABORATORY AND DIAGNOSTIC DATA: WBC 11.3, hemoglobin 13.3, hematocrit 41.4, and platelets 151. Sodium 137, potassium 3.3, chloride 104, bicarbonate 21, BUN 37, and creatinine 2. Lactic acid is 4.2. Bilirubin is 7 with direct bilirubin of 4. AST 168, ALT 125, and alkaline phosphatase 357. Blood culture gram-negative rods. Influenza A and B test was negative. CT scan of the abdomen and pelvis showed ascites, bilateral effusion, pulmonary edema or pneumonia. IMPRESSION: 1. Sepsis with septic shock. 2. Gram-negative sepsis. 3. Pneumonia. 4. Jaundice, elevated liver function tests. 5. Acute renal failure. 6. Diabetes mellitus. 7. CHF. RECOMMENDATION: We will continue with current antibiotics, Zosyn and vancomycin. We will followup the cultures and narrow antibiotics. At the end of my exam, I thank Dr. Vito Rajan, for involving me in the care of this patient. Robin Rajan M.D. DR: MOUNIKA JOB#: [id number] CC: ENEDINA
--- NOTE | 2018-02-06 22:39 | General Progress Note ---
Assessment/Plan Assessment/Plan Assessment - Sepsis/shock/lactic acidosis - possible cirrhosis as suggested by mild liver surface nodularity - mild coagulopathy - cholelithiasis - mild biliary ductal dilation - Jaundice --> Suspect combination of biliary obstruction, hepatic hypoperfusion , and chronic liver disease - anasarca Recommendation - NPO - IVF - Abx - follow labs - Supportive care - Wean down pressors as tolerated - ERCP tomorrow - Surgical f/u Subjective Allergies: Coded Allergies: No Known Allergies (Unverified , 02/04/18) Subjective Above noted resting comfortable U/S noted Patient on pressors LFT remain elevated d/w Dr. Parks re ERCP - prefer to do once less pressor requirements Objective Last 24 Hour Vital Signs Date Time Temp Pulse Resp B/P (MAP) Pulse Ox O2 Delivery O2 Flow Rate FiO2 02/06/18 19:36 Nasal Cannula 2.0 28 02/06/18 19:35 97 Nasal Cannula 2.0 28 02/06/18 19:00 87 20 91/67 96 Nasal Cannula 2.0 02/06/18 18:00 86 14 93/73 96 Nasal Cannula 2.0 02/06/18 17:00 86 14 92/65 96 Nasal Cannula 2.0 02/06/18 16:00 97.6 86 15 93/66 100 Nasal Cannula 2.0 97.6 02/06/18 16:00 90 02/06/18 15:00 85 15 99/64 100 Nasal Cannula 2.0 02/06/18 14:00 97.7 74 12 100/65 100 Nasal Cannula 2.0 97.7 02/06/18 13:00 89 15 103/74 97 Nasal Cannula 2.0 02/06/18 12:00 90 02/06/18 12:00 89 15 99/69 98 Nasal Cannula 2.0 02/06/18 10:00 91 14 102/77 98 Nasal Cannula 2.0 02/06/18 09:00 91 15 106/88 98 Nasal Cannula 2.0 02/06/18 08:00 91 02/06/18 08:00 98 12 106/77 98 Nasal Cannula 2.0 02/06/18 07:30 Nasal Cannula 4.0 36 02/06/18 07:30 97 Nasal Cannula 4.0 36 02/06/18 07:00 97.2 97 17 109/74 99 Nasal Cannula 2.0 97.2 02/06/18 07:00 97 12 109/74 100 Nasal Cannula 2.0 02/06/18 06:00 97 13 104/74 98 Nasal Cannula 2.0 02/06/18 05:51 107/84 02/06/18 05:30 96 4 115/86 89 Nasal Cannula 2.0 02/06/18 05:00 97.2 96 6 108/84 99 Nasal Cannula 2.0 97.2 02/06/18 04:00 96 02/06/18 04:00 96 15 107/84 98 Nasal Cannula 2.0 02/06/18 03:30 96 17 105/83 98 Nasal Cannula 2.0 02/06/18 03:00 90 15 107/80 98 Nasal Cannula 2.0 02/06/18 02:13 98.7 02/06/18 02:05 94 18 107/76 02/06/18 02:00 96 19 90/74 98 Nasal Cannula 2.0 02/06/18 01:44 97 17 99/74 98 Nasal Cannula 2.0 02/06/18 01:43 98.7 02/06/18 01:30 102 20 90/70 90 Nasal Cannula 2.0 02/06/18 01:00 100 20 96/77 90 Nasal Cannula 2.0 02/06/18 00:20 100/75 02/06/18 00:00 102 02/06/18 00:00 102 25 99/78 89 Nasal Cannula 2.0 02/05/18 23:00 101 27 100/75 78 Nasal Cannula 2.0 Intake and Output 02/05/18 02/06/18 19:00 07:00 Intake Total 1949.0 ml 1903.625 ml Output Total 80 ml 120 ml Balance 1869.0 ml 1783.625 ml IV Total 1949.0 ml 1903.625 ml Output Urine Total 80 ml 120 ml # Bowel Movements 3 3 Laboratory Tests 02/06/18 05:00: White Blood Count 11.3H, Red Blood Count 5.20, Hemoglobin 13.3L, Hematocrit 41.4L, Mean Corpuscular Volume 80, Mean Corpuscular Hemoglobin 25.5L, Mean Corpuscular Hemoglobin Concent 32.0, Red Cell Distribution Width 22.1H, Platelet Count 151, Mean Platelet Volume 13.9H, Neutrophils (%) (Auto) , Lymphocytes (%) (Auto) , Monocytes (%) (Auto) , Eosinophils (%) (Auto) , Basophils (%) (Auto) , Differential Total Cells Counted 100, Neutrophils % ( Manual) 85H, Lymphocytes % (Manual) 6L, Monocytes % (Manual) 6, Eosinophils % ( Manual) 1, Basophils % (Manual) 0, Band Neutrophils 2, Platelet Estimate Adequate, Platelet Morphology Normal, Anisocytosis 2+, Sodium Level 137, Potassium Level 3.6, Chloride Level 104, Carbon Dioxide Level 21, Anion Gap 12, Blood Urea Nitrogen 37H, Creatinine 2.0H, Estimat Glomerular Filtration Rate , Glucose Level 234H, Calcium Level 7.0L, Total Bilirubin 5.5H, Direct Bilirubin 4.0H, Aspartate Amino Transf (AST/SGOT) 168H, Alanine Aminotransferase (ALT/SGPT ) 125H, Alkaline Phosphatase 357H, Total Protein 4.9L, Albumin 1.6L, Globulin 3.3, Albumin/Globulin Ratio 0.5L, Hepatitis A IgM Antibody [Pending], Hepatitis B Surface Antigen [Pending], Hepatitis B Core IgM Antibody [Pending], Hepatitis C Antibody [Pending] 02/06/18 07:59: Arterial Blood pH 7.290L, Arterial Blood Partial Pressure CO2 38.8, Arterial Blood Partial Pressure O2 100.3H, Arterial Blood HCO3 18.4L, Arterial Blood Oxygen Saturation 96.6, Arterial Blood Base Excess -7.6, Biju Test Positive 02/06/18 09:00: Lactic Acid Level 2.10 02/06/18 12:00: Arterial Blood pH 7.340L, Arterial Blood Partial Pressure CO2 33.7L, Arterial Blood Partial Pressure O2 111.2H, Arterial Blood HCO3 17.8L, Arterial Blood Oxygen Saturation 97.8, Arterial Blood Base Excess -7.0, Biju Test Positive 02/06/18 19:05: Ammonia 16 Height (Feet): 5 Height (Inches): 5.00 Weight (Pounds): 133 Objective Debilitated elderly man NCAT supple CTA RR abd soft, mild RUQ TTP no edema mildly sedated YUMIKO MIMS Feb 06, 2018 22:39
[2018-02-06] MEDS ORDERED: Phytonadione 10 mg/mL 1ml amp SUBQ ONE (22:45)
[2018-02-07] VITALS (14 sets, daily range): BP systolic 0–97; BP diastolic 0–71
[2018-02-07] MEDS: Norepinephrine Bitartrate 8 MG in D5W 500ml 492 ML IV SCH (00:28)
[2018-02-07] MEDS: Piperacillin/Tazobactam 3.375 GM in D5W 110 ML IVPB SCH (05:48)
[2018-02-07] MEDS: NovoLOG Insulin Flexpen SUBQ SCH (05:49)
[2018-02-07 05:57] LABS: BASOPHILS % (AUTO) 0.4 % (0.0-2.0); HEMATOCRIT 39.5 % (42.0-52.0); LYMPHOCYTES % (AUTO) 10.7 % (20.0-45.0); MEAN CORPUSCULAR VOLUME 79 FL (80-99); MONOCYTES % (AUTO) 4.1 % (1.0-10.0); NEUTROPHILS % (AUTO) 81.9 % (45.0-75.0); PLATELET COUNT 112 K/UL (150-450)
[2018-02-07 06:19] LABS: INR 1.4 (0.9-1.1)
[2018-02-07 06:24] LABS: ALANINE AMINOTRANSFERASE 126 U/L (12-78); ALBUMIN 1.4 G/DL (3.4-5.0); ALBUMIN/GLOBULIN RATIO 0.4 (1.0-2.7); ALKALINE PHOSPHATASE 316 U/L (46-116); ANION GAP 10 mmol/L (5-15); ASPARTATE AMINO TRANSFERASE 151 U/L (15-37); BILIRUBIN,TOTAL 5.4 MG/DL (0.2-1.0); BLOOD UREA NITROGEN 34 mg/dL (7-18); CALCIUM 7.2 MG/DL (8.5-10.1); CARBON DIOXIDE 24 MMOL/L (21-32); CHLORIDE 102 MMOL/L (98-107); CREATININE 2.1 MG/DL (0.55-1.30); SODIUM 135 MMOL/L (136-145)
--- NOTE | 2018-02-07 06:24 | Anethesia Preoperative Eval ---
Anesthesia Pre-op PMH/ROS General Date of Evaluation: Feb 07, 2018 Time of Evaluation: 06:22 Anesthesiologist: medina ASA Score: ASA 4 Mallampati Score Class I : Soft palate, uvula, fauces, pillars visible Class II: Soft palate, uvula, fauces visible Class III: Soft palate, base of uvula visible Class IV: Only hard plate visible Mallampati Classification: Class II Surgeon: heriberto Surgical Procedure: ercp Anesthesia History: none Social History: smoking - nonsmoker Family History: no anesthesia problems Allergies: Coded Allergies: No Known Allergies (Unverified , 02/04/18) Medications: see eMAR Past Medical History Cardiovascular: Reports: HTN, other - cardiomyopathy Gastrointestinal/Genitourinary: Reports: other - arf, Endocrine: Reports: DM Hematology/Immune: Reports: other - septic shock Anesthesia Pre-op Phys. Exam Physician Exam Last Vital Signs Date Time Temp Pulse Resp B/P (MAP) Pulse Ox O2 Delivery O2 Flow Rate FiO2 02/07/18 05:00 87 17 93/67 99 Nasal Cannula 2.0 02/07/18 04:00 98.3 98.3 02/06/18 19:36 28 Constitutional: NAD Neurologic: CN 2-12 intact Cardiovascular: other - on vasopressors Respiratory: CTA Gastrointestinal: S/NT/ND, other - jaundiced Airway Exam Mallampati Score: Class II MO: limited Neck: supple right ij in place TMD: 2fb ROM: limited Teeth: missing Anesthesia Pre-op A/P Labs Hematology Test 02/07/18 05:00 White Blood Count 9.0 K/UL (4.8-10.8) Red Blood Count 5.00 M/UL (4.70-6.10) Hemoglobin 13.0 G/DL (14.2-18.0) L Hematocrit 39.5 % (42.0-52.0) L Mean Corpuscular Volume 79 FL (80-99) L Mean Corpuscular Hemoglobin 26.1 PG (27.0-31.0) L Mean Corpuscular Hemoglobin Concent 33.0 G/DL (32.0-36.0) Red Cell Distribution Width 22.0 % (11.6-14.8) H Platelet Count 112 K/UL (150-450) L Mean Platelet Volume 12.1 FL (6.5-10.1) H Neutrophils (%) (Auto) 81.9 % (45.0-75.0) H Lymphocytes (%) (Auto) 10.7 % (20.0-45.0) L Monocytes (%) (Auto) 4.1 % (1.0-10.0) Eosinophils (%) (Auto) 3.0 % (0.0-3.0) Basophils (%) (Auto) 0.4 % (0.0-2.0) Coagulation Test 02/07/18 05:00 Prothrombin Time 14.7 SEC (9.30-11.50) H Prothromb Time International Ratio 1.4 (0.9-1.1) H Chemistry Test 02/06/18 09:00 02/06/18 19:05 02/07/18 05:00 Lactic Acid Level 2.10 mmol/L (0.66-2.22) Ammonia 16 umol/L (11-32) Sodium Level Pending Potassium Level Pending Chloride Level Pending Carbon Dioxide Level Pending Blood Urea Nitrogen Pending Creatinine Pending Estimat Glomerular Filtration Rate Pending Glucose Level Pending Calcium Level Pending Total Bilirubin Pending Aspartate Amino Transf (AST/SGOT) Pending Alanine Aminotransferase (ALT/SGPT) Pending Alkaline Phosphatase Pending Troponin I Pending Pro-B-Type Natriuretic Peptide Pending Total Protein Pending Albumin Pending Globulin Pending Risk Assessment & Plan Assessment: asa4 Plan: mac Status Change Before Surgery: No Pre-Antibiotics Drug: JAVIER Nichols Feb 07, 2018 06:24
[2018-02-07] MEDS ORDERED: Atropine Inj 1mg/10ml Syr IV PRN (06:30)
[2018-02-07] MEDS ORDERED: Midazolam 2mg/2ml Inj IVP PRN (06:30)
[2018-02-07] MEDS ORDERED: DiphenhydrAMINE 50mg/ml Inj IVP PRN (06:30)
[2018-02-07] MEDS ORDERED: fentaNYL 100 mcg/2 mL IV PRN (06:30)
[2018-02-07 06:33] LABS: BILIRUBIN,DIRECT 4.6 MG/DL (0.0-0.3)
[2018-02-07] MEDS ORDERED: Iothalamate Meglumine 60% 30ML INJ ONE (06:46)
--- NOTE | 2018-02-07 06:59 | Pre-Procedure Note/Attestation ---
Pre-Procedure Note/Attestation Complete Prior to Procedure Planned Procedure: not applicable Procedure Narrative: ercp Indications for Procedure Pre-Operative Diagnosis: cholangitis Attestation I attest that I discussed the nature of the procedure; its benefits; risks and complications; and alternatives (and the risks and benefits of such alternatives ), prior to the procedure, with the patient (or the patient's legal livestock sales representative). I attest that, if there was a reasonable possibility of needing a blood transfusion, the patient (or the patient's legal livestock sales representative) was given the [facility] standardized written summary, pursuant to the [facility] Blood Safety Act ([place] Health and Safety Code # 1645, as amended). I attest that I re-evaluated the patient just prior to the surgery and that there has been no change in the patient's H&P, except as documented below: EBONY SIMMONS Feb 07, 2018 06:59
[2018-02-07] MEDS ORDERED: Glucagon 1mg Inj ONE (07:00)
[2018-02-07] MEDS ORDERED: Lidocaine 1% MPF 10mg/ml 5ml ONE (07:00)
[2018-02-07] MEDS ORDERED: Vancomycin 1gm/D5W 275ml IVPB SCH ×4 (07:00→08:00)
[2018-02-07] MEDS ORDERED: Propofol 200mg/20ml IV ONE (07:00)
[2018-02-07] MEDS ORDERED: fentaNYL 100 mcg/2 mL IV ONE (07:00)
[2018-02-07] MEDS ORDERED: Phenylephrine 10mg/ml Vial ONE (07:00)
[2018-02-07] MEDS ORDERED: Atropine Sulfate 0.4mg/ml inj ONE (07:00)
[2018-02-07] MEDS ORDERED: NS 500ML IV ONE (07:05)
--- NOTE | 2018-02-07 07:15 | Consultation ---
DATE OF CONSULTATION: 02/06/2018 CARDIOLOGY CONSULTATION CONSULTING PHYSICIAN: Alek Lee M.D. REFERRING PHYSICIAN: Vito Rajan M.D. REASON FOR REFERRAL: Hypertension, bacteremia and cardiomyopathy. HISTORY OF PRESENT ILLNESS: This is an 82-year-old gentleman, who is really not able to provide any history whatsoever. The patient's information is obtained from the chart. I tried to contact the patient's daughter on the listed phone number given, but I have not been successful in reaching her yet. The chart indicates the patient was admitted to the hospital on 02/04. The ambulance run sheet indicates he was found to have blood pressure 95/64 with a heart rate of 67, saturation of 84% to 90%. Blood sugar of 80, complaining of weakness that has been progressively worse for the past three days, sitting in a chair, mild level of distress. No dizziness. No nausea. No vomiting. No chest pain. No shortness of breath apparently according to the ship worker run sheet. The patient was transferred to the emergency room here at [facility]. EKG showing T-wave inversions in II, III and aVF as well as V4, V5 and V6 and in the emergency room, the patient was evaluated and admitted to the hospital by Dr. Rajan and seen by NHEA Sandoval as well. His liver function tests was noted to be elevated and was noted to have ascites and dropped his blood pressure. Initially in the emergency room received 1 liter of IV fluids and a second liter was administered through an IJ line and started on some Levophed. PAST MEDICAL HISTORY: According to the chart, the patient's past medical history is positive for history of hypertension, diabetes, and asthma, not clear, however, the patient's daughter indicated to the nursing staff here in the intensive care unit that the heart muscle function though significantly poor at this time seems to be improved compared to what she was aware of, although I am not sure exactly what that meant. Anyway, the chart indicates he has no known drug allergies. SOCIAL HISTORY: Really unknown. REVIEW OF SYSTEMS: Unable to obtain. PHYSICAL EXAMINATION: GENERAL: Shows to be an elderly gentleman, in no respiratory distress. He is lethargic, arousable and minimally communicative, and had an IJ line on the right side. NECK: Supple. There is jugular venous distention on the left side. LUNGS: Decreased breath sounds noted at the right base. CARDIAC: Regular rhythm. There is a faint systolic murmur noted. ABDOMEN: Soft and nontender. No hepatosplenomegaly. EXTREMITIES: He has bilateral lower extremity edema, pitting all the way up to the thighs. NEUROLOGICAL: As mentioned, arousable, minimally responsive. LABORATORY AND DIAGNOSTIC DATA: His laboratory, his lactic acid of level of 2.1 initially increased to 4.7, and now back down to 2.1. Liver function tests are abnormal with AST and ALT in the 100s and alkaline phosphatase of 489 coming down to 357. His creatinine was 2.1, now 2.0. BUN of 42 down to 37 and potassium of 3.9 down to 3.6. Albumin is 1.9 down to 1.6. Coagulations, INR 1.7 and PTT of 60. Urinalysis is 2-4 wbc's and rbc's. Blood cultures are positive for gram-negative bacilli and influenza swab was negative. I have had a chance to review the echocardiogram, shows severe global hypokinesis, ejection fraction is probably about 15% or so with moderate to severe MR and TR and some pulmonary hypertension. IVC does not appear to be underinflated. His pericardial effusion is small and pleural effusion is also noted. Valves appear to be intact. ASSESSMENT AND PLAN: 1. Bacteremia. 2. Septic shock. 3. Hypotension secondary to above. 4. Cardiomyopathy, possibly global. 5. Coagulopathy. 6. Abnormal LFTs, questionable related to passive liver congestion versus other etiologies. 7. Metabolic encephalopathy. Dr. Rajan, this patient was seen in cardiac consultation. The patient's CT scan was reviewed and significant pleural effusion is noted, right greater than left. He does have evidence of anasarca on physical examination and on the CT scan and significant hypoalbuminemia was noted. The question is the etiology of this issue. The patient is seen by for possibility of cholecystitis, evaluation is ongoing. At the present time, the patient is quite hypotensive and is on pressors maintaining blood pressure systolic in the 80s to 90 range. I do not favor diuretics at this time as he is not in respiratory distress, and in light of the septic shock, I think he should be continued on IV fluids unless he develops hypoxemia related to congestive heart failure. Serum ammonia level should be checked to see if this may be related to metabolic encephalopathy from chronic liver disease. He does have 3+ protein loss in his urine that may be also the cause of anasarca as well. Nevertheless, he does have significant cardiac dysfunction and a typical picture of Takotsubo's cardiomyopathy is lacking on evaluation of his echocardiogram, but certainly that may be a possibility unless this is cardiomyopathy. At this time, the patient is not a candidate for an MAL inhibitor or beta-blockers due to his hypotension, but definitely need to be evaluated for at some point in the future. Two sets of cardiac enzymes are negative at the time of his admission leading me to believe that this may be chronic in nature. I would consider administration of dobutamine at some point to help his blood pressure management as part of the pressors as well. Alek Lee M.D. DR: EDDIE JOB#: [id number] CC:
--- NOTE | 2018-02-07 08:30 | Emergency Room Report ---
History of Present Illness General Chief Complaint: Altered Level of Consciousness Source: Patient, Family Member Present Illness Allergies: Coded Allergies: No Known Allergies (Unverified , 02/04/18) Nursing Documentation-H Hx Cardiac Problems: Yes Hx Hypertension: Yes Hx Diabetes: Yes Hx Cancer: No Hx Gastrointestinal Problems: No Hx Neurological Problems: No Physical Exam Vital Signs Date Time Temp Pulse Resp B/P (MAP) Pulse Ox O2 Delivery O2 Flow Rate FiO2 02/04/18 15:44 97.8 86 14 90/60 95 Room Air 97.9 02/04/18 21:22 2.0 02/06/18 07:30 36 Procedures Critical Care Time Critical Care Time i. I feel this is a highly complex case requiring extensive working including EKG/Rhythm strip, Xray/CT/US, Blood/urine lab work, repeat exams while in ED, and administration of strong opiates/narcotics for pain control, admission to hospital or close patient follow up. Total time: 30 min bedside evaluation and treatment excludes procedures (EKG). Reason for critical care: Cardiac arrest Possible complications: hypotension, hypertension, NC, shock, arrhythmias, metabolic acidosis, end organ damage, respiratory failure. Interventions: Accu-Chek, atropine 3, calcium, bicarbonate, D50 2, epinephrine , chest compressions, Course: Patient became unresponsive during ERCP. Intubated by anesthesiologist. Patient bradycardic, given atropine without resolution. Accu -Chek critically low. Given D50 and remains low given another round of D50. Patient lost pulses. Rhythm PEA. Despite chest compressions and epinephrine patient remains without pulse. Patient already on Levophed and dobutamine. Prognosis poor. Patient expires Consultations: nursing staff, EMS, family Performed by: Dr Waters Tolerated well condition = j. because of unstable vital signs this patient had a condition that could potentially threaten life or limb. I feel this is a critical patient who required my full attention while patient was considered critical. Total Critical Care Time excluding procedures was greater than 35 minutes CPR/Code Blue CPR/Code Blue Narrative see code blue sheet for full narrative Medical Decision Making Diagnostic Impression: Primary Impression: Hypotension Additional Impressions: Decreased oral intake Generalized weakness Hypoglycemia Renal failure Elevated LFTs ER Course I was called to this CODE BLUE in the GI lab in radiology. Patient was undergoing ERCP when he became unresponsive. Intubated by anesthesia just prior to my arrival. Accu-Chek critically low. Given D50. Patient extremely bradycardic. Patient currently on the Levophed and dobutamine. Patient given atropine and despite atropine patient lost pulses. Rhythm PEA. Chest compressions started. Given epinephrine 3. Given calcium and bicarbonate. Accu-Chek remains low. Given additional D50. Patient given atropine 3 but remains bradycardic. Patient remains PEA. Prognosis poor given that patient is already on Levophed and dobutamine. Resuscitative efforts terminated. Patient expires Last Vital Signs Date Time Temp Pulse Resp B/P (MAP) Pulse Ox O2 Delivery O2 Flow Rate FiO2 02/07/18 06:30 90 24 91/68 99 Nasal Cannula 2.0 02/07/18 04:00 98.3 98.3 02/06/18 19:36 28 Status: worsened Disposition: Condition: Referrals: NOT CHOSEN ROSS/,REFERRING (PCP) TONIE WATERS M.D. Feb 07, 2018 08:30
--- NOTE | 2018-02-07 08:37 | Immediate Post-Op Evaluation ---
Immediate Post-Op Evalulation Immediate Post-Op Evalulation Procedure: ercp Date of Evaluation: Feb 07, 2018 Time of Evaluation: 08:10 Blood Products: none Estimated Blood Loss: negligible Blood Pressure Systolic: 0 Blood Pressure Diastolic: 0 Pulse Rate: 0 Respiratory Rate: 0 O2 Sat by Pulse Oximetry: 0 Pain Score (1-10): 0 Nausea: No Vomiting: No Complications rapid response team called when patient went into bradycardic rhythm not responding to atropine. see code sheet Patient Status: no response Hydration Status: other - patient Drug: JAVIER Nichols Feb 07, 2018 08:37
--- NOTE | 2018-02-07 11:33 | Diagnostic Imaging Report ---
Indication: Biliary ductal dilatation, jaundice, abnormal liver function tests Technique: Limited intraprocedural images; exam aborted due to intraprocedural CODE BLUE Comparison: none Findings: Normal caliber common bile duct is opacified. There is a low cystic duct insertion. Gallbladder is opacified on the second image. Linear filling defects may represent cortical folds versus a sludge demonstrated on recent ultrasound Impression: Limited intraoperative images, as described
--- NOTE | 2018-02-07 12:14 | Endoscopy Procedure Note ---
Endoscopy Procedure Note General Indication for Procedure: cholangitis Procedures Performed: ERCP Operative Findings/Diagnosis: same Specimen: none Pt Tolerated Procedure Well: Yes Estimated Blood Loss: none Anesthesia Anesthesiologist: sharad Anesthesia: MAC Inserted Devices Implant(s) used?: No Quality Was there any complications?: Yes If yes, complication due to: Required CPR GI Core Measures 50 yrs or older w/o bx or poly: Not Applicable 10yrs. F/U not recommended: Not Applicable EBONY SIMMONS Feb 07, 2018 12:14
[2018-02-07] MEDS ORDERED: NS 275ml ONE (15:29)
[2018-02-07] MEDS ORDERED: Tubing IV Secondary IV ONE (15:29)
[2018-02-07] MEDS ORDERED: D5NS 1000ml IV ONE (15:29)
[2018-02-07] MEDS ORDERED: Sterile Water Irrig 1000ml IRRIG ONE (15:29)
--- NOTE | 2018-02-07 17:59 | Discharge Summary ---
Discharge Summary Hospital Course Date of Admission Feb 04, 2018 at 16:34 Date of Discharge Feb 07, 2018 at 15:30 Admitting Diagnosis Failure to thrive HPI Hilda Gould is a 82 year old male who was admitted on Feb 04, 2018 at 16:34 for Failure To Thrive Hospital Course [id number] Discharge Discharge Disposition Patient was discharged to Maribell Means NP Feb 07, 2018 17:59
--- NOTE | 2018-02-07 19:45 | Procedure Note ---
DATE OF PROCEDURE: 02/07/2018 SURGEON: James Parks M.D. REFERRING PHYSICIAN: Gus Ingram M.D. PROCEDURE: ERCP with sphincterotomy and stone removal. ANESTHESIA: Per Dr. Calero. INSTRUMENT: [employer] adult ERCP scope. INDICATION: Jaundice, elevated bilirubin, and possible cholangitis. The procedure, risks, benefits, and possible consequences, including hemorrhage, aspiration, perforation and infection, and alternative treatments, were explained to the patient/legal guardian by Dr. James Parks and the patient/legal guardian understood and accepted these risks. DESCRIPTION OF PROCEDURE: This is an 82-year-old male with the above diagnoses. The patient was seen by Dr. Calero, anesthesiologist, prior to the procedure and cleared for the procedure, but the patient had to be done in the supine position. Anesthesiologist did not feel comfortable with the patient to be in the prone position given the patient was started on pressor and blood pressure was running a little bit low. So, decision was to do this procedure on the supine position, which we did. About 10 minutes into the procedure, we were able to cannulate the common bile duct and did 90% sphincterotomy. Initial cholangiogram showed evidence of 7 to 8 mm common bile duct and patent cystic duct. Gallbladder was also filled with the contrast. There were multiple stones in the gallbladder, small ones. There were also one or two small stones in the distal common bile duct, most probably causing biliary obstruction. Right after the sphincterotomy, there was a lot of dark black-colored bile, which came out. Also, one or two small stone particles came out from just the sphincterotomy alone, suggesting maybe the stone was kind of impacting the ampulla. Of note, the patient the patient had evidence of duodenal diverticulum and the ampulla was in the diverticulum. After we did a sphincterotomy, we were ready to switch the balloon to sweep the stones out, but the patient became hypotensive and bradycardic. He actually stopped breathing and we actually had to call the Code Blue. The scope was retrieved. The patient was resuscitated. Unfortunately, after giving multiple epinephrine and atropine, resuscitations, CPR, and intubation, unfortunately, the patient did not survive the code and . SUMMARY OF FINDINGS: 1. Periampullary diverticulum. 2. Choledocholithiasis. 3. Cholelithiasis. 4. Possible stool impaction in the distal common bile duct after the sphincterotomy and lots of bile and some small stones coming out after sphincterotomy. 5. Unable to remove the rest of the stones because the patient coded and actually . I want to thank Dr. Ingram for this kind referral. James Parks M.D. DR: KODY JOB#: [id number] CC: Gus Ingram M.D.; Fax#: [phone]
--- NOTE | 2018-02-08 12:15 | Discharge Summary 2 SIG ---
BRIEF SUMMARY: The patient is an unfortunate 82-year-old male, who lives at home. The patient was noted to be not eating for the past few days and was not responding well. He had confusion and weakness. He was taken to emergency room. Blood pressure was low. He was found to be in septic shock. Central line was inserted and was started on IV pressors. He has history of diabetes mellitus, hypertension, and coronary artery disease, status post stent. According to , the patient had some liver disease, but unable to give details. On evaluation, he was noted to have elevated LFTs. Total bilirubin 6.4 and direct bilirubin 5.2. He was admitted to ICU for septic shock and elevated liver enzymes. He was placed on NPO and was started empirically on IV antibiotics, Zosyn and vancomycin. He had a CAT scan of the abdomen and pelvis that showed mild ascites with bilateral pleural effusion and presence of anasarca. There was no pancreatic or gallbladder pathology clearly evident. Abdominal ultrasound showed gallbladder sludge and possible stones. There was mild intrahepatic and extrahepatic biliary ductal dilatation. However, no significant obstruction. He had an echocardiogram done that showed left ejection fraction of 15% to 20%. There was severe global left ventricular hypokinesis, severe mitral regurgitation, severe tricuspid regurgitation, and severe pulmonary hypertension. He underwent an endoscopy on 02/07/2018, however, the patient coded. He was orally intubated and was given IV pressors. He was given a dose of atropine. The patient lost pulse and went to [facility]. Resuscitative efforts failed. The patient eventually . FINAL DIAGNOSES: 1. Septic shock. 2. Acute renal failure. 3. Elevated liver transaminases. 4. Protein-calorie malnutrition. 5. Gram-negative septicemia. Blood culture showing growth of gram-negative bacteria. 6. Cardiomyopathy. Vito Rajan M.D. I have been assigned to dictate discharge summary on this account and I was not involved in the patient's management. Maribell Means N.P. DR: MIKALA JOB#: [id number] CC:
--- NOTE | 2018-02-08 16:15 | Cardiology Report ---
APPROVED REPORT EKG Measurement Heart [id number] Normal sinus rhythm Low voltage QRS Nonspecific T wave abnormality Prolonged QT Abnormal ECG
== END 2018-02-07 15:30 | disposition expired | DRG 710 ==
LOC: EDBD 15:49 → EMR 16:17 → EDBEDREQ 16:25 → 2E 16:34 → UNDOADMIN 16:34 → ICU 16:34 → EDBEDREQ 16:49
PROC: 05HM33Z Insertion of Infusion Device into Right Internal Jugular Vein, Percutaneous Approach (ICD-10-PCS; 2018-02-04)
PROC: 5A12012 Performance of Cardiac Output, Single, Manual (ICD-10-PCS; 2018-02-07)
PROC: 0BH17EZ Insertion of Endotracheal Airway into Trachea, Via Natural or Artificial Opening (ICD-10-PCS; 2018-02-07)
PROC: 0FC48ZZ Extirpation of Matter from Gallbladder, Via Natural or Artificial Opening Endoscopic (ICD-10-PCS; principal; 2018-02-07 07:22)
PROC: 0FC98ZZ Extirpation of Matter from Common Bile Duct, Via Natural or Artificial Opening Endoscopic (ICD-10-PCS; principal; 2018-02-07 07:22)
DX: A41.50 Gram-negative sepsis, unspecified (principal); R65.21 Severe sepsis with septic shock; N17.9 Acute kidney failure, unspecified; J18.9 Pneumonia, unspecified organism; G93.41 Metabolic encephalopathy; E46 Unspecified protein-calorie malnutrition; I11.0 Hypertensive heart disease with heart failure; I50.9 Heart failure, unspecified; D68.9 Coagulation defect, unspecified; I42.9 Cardiomyopathy, unspecified; E11.649 Type 2 diabetes mellitus with hypoglycemia without coma; I25.10 Atherosclerotic heart disease of native coronary artery without angina pectoris; Z95.5 Presence of coronary angioplasty implant and graft; I34.0 Nonrheumatic mitral (valve) insufficiency; I36.1 Nonrheumatic tricuspid (valve) insufficiency; I27.20 Pulmonary hypertension, unspecified; N39.0 Urinary tract infection, site not specified; R17 Unspecified jaundice; R18.8 Other ascites; K80.70 Calculus of gallbladder and bile duct without cholecystitis without obstruction; K57.10 Diverticulosis of small intestine without perforation or abscess without bleeding; K80.30 Calculus of bile duct with cholangitis, unspecified, without obstruction
CPT/HCPCS: 36415; 36600; 71045; 74018; 74176; 74328; 76000; 76700; 80048; 80053; 80076; 80202; 81003; 82140; 82248; 82550; 82803; 82962; 83605; 83880; 84484; 85007; 85025; 85610; 85730; 86705; 86709; 86710; 86803; 86850; 86900; 86901; 87040; 87070; 87081; 87181; 87205; 87340; 92950; 93005; 93306; 93970; 94760; 99291; J0171; J1580; J1815; J2370